=== PATIENT | female | born 1945 | race Caucasian/White ===

== ENCOUNTER 2018-05-23 11:18 | Emergency (ER) | payer MEDICARE, SELFPAY ==
[2018-05-23 11:21] VITALS: BP 186/85; PULSE 60; RESP 14; TEMP 36.4; O2SAT 97; BMI 23.9
[2018-05-23] MEDS: KETOROLAC 60 MG/2 ML VIAL 30 MG IV (11:49)
[2018-05-23] MEDS: SODIUM CHLORIDE 0.9% 1,000 ML 1000 ML IV (11:49)
[2018-05-23 12:01] LABS: INR 2.1 (0.9-1.3); Prothrombin Time 24.5 SECONDS (10.1-12.7)
[2018-05-23 12:04] LABS: PTT Partial Thromboplastin Tim 39 SECONDS (26.4-36.2)
[2018-05-23 12:05] LABS: Alanine Aminotransferase 24 IU/L (9-52); Albumin Globulin Ratio 1.3 (1.0-2.8); Alkaline Phosphatase 76 U/L (38-126); Aspartate Aminotransferase 19 IU/L (14-36); Bilirubin Total 0.4 mg/dL (0.2-1.3); Blood Urea Nitrogen 10 mg/dL (7-17); Calcium 8.9 mg/dL (8.4-10.2); Carbon Dioxide 29 mmol/L (22-32); Chloride 102 mmol/L (98-107); Estimated Glomerular Filt Rate > 60.0 mL/min (>60); Glucose 104 mg/dL (80-110); HEMOLYSIS < 15 (0-50); Lipase 72 U/L (23-300); Potassium 4.1 mmol/L (3.4-5.1); Sodium 139 mmol/L (137-145)
[2018-05-23 12:36] LABS: Add Manual Diff / Slide Review NO; Basophils Percent Auto 0.5 % (0-2); Eosinophils Percent Auto 0.6 % (2-4); Hematocrit 42.5 % (36-46); Hemoglobin 14.5 g/dL (12.0-16.0); Lymphocytes Percent Auto 25.9 % (25-40); Mean Corpuscular Hemoglobin 29.4 PG (26-34); Mean Corpuscular Volume 86.5 fL (80-100); Monocytes Percent Auto 6.5 % (3-14); Neutrophils Absolute Auto 5000 /uL (1500-7000); Neutrophils Percent Auto 66.5 % (50-75); Platelet Count 335 X10^3/uL (150-400); Red Blood Cell Count 4.92 X10^6/uL (4.0-5.2); Red Cell Distribution Width 13.5 % (11.6-14.8); White Blood Cell Count 7.4 X10^3/uL (4.5-11.0)
--- NOTE | 2018-05-23 12:37 | ED.FEMALEGU ---
HPI - Female Genitourinary <DESTINY Ricks - Last Filed: 05/23/18 21:49> General Chief complaint: Urogenital-Female Stated complaint: states blood in urine and abdonimal pain Time Seen by Provider: 05/23/18 12:06 Source: patient Mode of arrival: ambulatory Limitations: no limitations History of Present Illness HPI Narrative: 72-year-old female with history a QT prolongation and is a nonsmoker here for complaint of pain into her left lower quadrant area and also to her left flank over the past couple of days. She was seen in the walk-in clinic and was sent here for further evaluation. She has a history of having kidney stones. It is reported that there was some blood in her urine at the walk-in clinic. She denies any fevers or chills. She did say she had some hematuria over the past couple of days. Pain has reduced over the past few hours. She denies any trauma to the area. Last bowel movement was earlier today and was unremarkable. Positive flatus. She also states she has some mild dysuria. She denies any other current concerns or complaints at this time MD Complaint: dysuria Related Data Home Medications Medication Instructions Recorded Confirmed propranolol ER 120 mg capsule,24 120 mg PO DAILY 12/04/17 05/23/18 hr,extended release warfarin 2 mg tablet See Label Instructions .ROUTE 12/04/17 05/23/18 .COMPLEX tab Previous Rx's Medication Instructions Recorded alendronate [Fosamax] 70 mg PO Q7D@0730 #36 tab 05/21/18 estradiol [Estrace] 1 mg PO Q DAY #90 tab 05/21/18 oxybutynin chloride ER 15 mg 15 mg PO DAILY #30 tab 05/21/18 tablet,extended release 24 hr Allergies Allergy/AdvReac Type Severity Reaction Status Date / Time procaine Allergy Intermediate Unconscious Verified 05/23/18 11:26 ondansetron [ONDANSETRON] Allergy Mild Unconscious Verified 05/23/18 11:26 Review of Systems <DESTINY Ricks - Last Filed: 05/23/18 21:49> Constitutional Denies chills, Denies fever(s), Denies lethargy and Denies weakness Eyes Denies change in vision, Denies eye discharge, Denies irritation and Denies loss of vision ENT Ears, Nose, Mouth, and Throat: Denies change in voice, Denies neck pain and Denies sore throat Cardiovascular Denies chest pain, Denies irregular heart rhythm, Denies lightheadedness, Denies palpitations, Denies dyspnea, Denies dyspnea on exertion and Denies orthopnea Respiratory Denies cough, Denies dyspnea, Denies dyspnea on exertion and Denies wheezing Gastrointestinal Gastrointestinal: Denies abdominal pain, Denies change in bowel habits, Denies diarrhea, Denies nausea and Denies vomiting Genitourinary Comments: Left flank pain and left lower quadrant pain over the past couple of days Musculoskeletal Denies neck pain Neurologic Denies confusion, Denies loss of vision and Denies weakness Psychiatric Denies anxiety, Denies confusion, Denies depression, Denies homicidal ideation and Denies suicidal ideation Endocrine Denies palpitations Hematologic/Lymphatic Denies easy bruising Allergic/Immunologic Denies wheezing Exam <DESTINY Ricks - Last Filed: 05/23/18 21:49> Initial Vital Signs Initial Vital Signs: Vital Signs Temperature 97.6 F 05/23/18 11:21 Pulse Rate 60 05/23/18 11:21 Respiratory Rate 14 05/23/18 11:21 Blood Pressure 186/85 H 05/23/18 11:21 Pulse Oximetry 97 05/23/18 11:21 Const General: cooperative and well developed Nutritional Appearance: well nourished Orientation: alert, awake, oriented x3 and not confused [facility] Mouth: oral mucosae normal and moist mucous membranes Eyes Conjunctivae: conjunctivae normal Sclera: sclerae normal Pupils: PERRL EOM: EOM intact bilaterally Resp Effort & Inspection: normal respiratory effort, able to speak in complete sentences, no respiratory distress and no use of accessory muscles Auscultation: clear to auscultation bilaterally, no rales, no rhonchi and no wheezes Cardio Rate: regular rate Rhythm: regular rhythm Heart Sounds: no click, no gallops, no murmurs and no rubs Pulses: normal peripheral pulses GI Inspection: non-distended Palpation: soft, no hepatosplenomegaly, No guarding, No pulsatile mass and tender (Left lower quadrant) Auscultation: normal bowel sounds General: No CVA tenderness Skin General: no rashes or lesions noted, No jaundice and No petechiae Neuro General: alert, oriented x3, gait normal and no focal motor deficits Speech: speech normal <Teena Pittman DO - Last Filed: 05/26/18 19:18> Initial Vital Signs Initial Vital Signs: Vital Signs Temperature 97.6 F 05/23/18 11:21 Pulse Rate 60 05/23/18 11:21 Respiratory Rate 14 05/23/18 11:21 Blood Pressure 186/85 H 05/23/18 11:21 Pulse Oximetry 97 05/23/18 11:21 Course <DESTINY Ricks - Last Filed: 05/23/18 21:49> Orders Ordered: Discontinued Medications Sodium Chloride (Normal Saline 0.9%) 1,000 mls @ 1,000 mls/hr IV BOLUS ONE Stop: 05/23/18 12:44 Last Infusion: 05/23/18 13:59 Dose: 0 mls/hr Admin: 05/23/18 11:49 Dose: 1,000 mls/hr Ketorolac Tromethamine (Toradol) 30 mg IV NOW ONE Stop: 05/23/18 11:47 Last Admin: 05/23/18 11:49 Dose: 30 mg Vital Signs - 8 hr 05/23/18 14:05 Pulse Rate 65 Blood Pressure [Right Arm] 159/74 H Pulse Oximetry 100 <Teena Pittman DO - Last Filed: 05/26/18 19:18> Orders Ordered: Discontinued Medications Sodium Chloride (Normal Saline 0.9%) 1,000 mls @ 1,000 mls/hr IV BOLUS ONE Stop: 05/23/18 12:44 Last Infusion: 05/23/18 13:59 Dose: 0 mls/hr Admin: 05/23/18 11:49 Dose: 1,000 mls/hr Ketorolac Tromethamine (Toradol) 30 mg IV NOW ONE Stop: 05/23/18 11:47 Last Admin: 05/23/18 11:49 Dose: 30 mg Vital Signs - 8 hr 05/23/18 14:05 Pulse Rate 65 Blood Pressure [Right Arm] 159/74 H Pulse Oximetry 100 MDM - Female Genitourinary <DESTINY Ricks - Last Filed: 05/23/18 21:49> Medical Records Lab Data Result diagrams: 05/23/18 11:41 05/23/18 11:41 Lab Results 01/10/0405/23/18 05/23/18 Range/Units 11:41 11:41 11:41 WBC 7.4 (4.5-11.0) X10^3/uL RBC 4.92 (4.0-5.2) X10^6/uL Hgb 14.5 (12.0-16.0) g/dL Hct 42.5 (36-46) % MCV 86.5 (80-100) fL MCH 29.4 (26-34) PG MCHC 34.0 (30-36) % RDW 13.5 (11.6-14.8) % Plt Count 335 (150-400) X10^3/uL Neut % (Auto) 66.5 (50-75) % Lymph % (Auto) 25.9 (25-40) % [place] % (Auto) 6.5 (3-14) % Eos % (Auto) 0.6 L (2-4) % Baso % (Auto) 0.5 (0-2) % Neut # (Auto) 5000 (7342-3978) /uL PT 24.5 H (10.1-12.7) SECONDS INR 2.1 H (0.9-1.3) APTT 39 H (26.4-36.2) SECONDS Sodium 139 (137-145) mmol/L Potassium 4.1 (3.4-5.1) mmol/L Chloride 102 (98-107) mmol/L Carbon Dioxide 29 (22-32) mmol/L BUN 10 (7-17) mg/dL Creatinine 0.50 L (0.52-1.04) mg/dL Estimated GFR > 60.0 (>60) mL/min BUN/Creatinine Ratio 20.0 (6-22) Glucose 104 (80-110) mg/dL Calcium 8.9 (8.4-10.2) mg/dL Total Bilirubin 0.4 (0.2-1.3) mg/dL AST 19 (14-36) IU/L ALT 24 (9-52) IU/L Alkaline Phosphatase 76 (38-126) U/L Total Protein 7.0 (6.3-8.2) g/dL Albumin 4.0 (3.5-5.0) g/dL Globulin 3.0 (1.7-4.1) g/dL Albumin/Globulin Ratio 1.3 (1.0-2.8) Lipase 72 (23-300) U/L Urine Dip Bedside Urine Glucose Negative Bedside Urine Bilirubin - Negative Bedside Urine Ketone - Negative Urine Specific [place] 1.010 Bedside Urine Occult Blood - Negative Bedside Urine pH 8.0 Bedside Urine Protein - Negative Bedside Urine Urobilinogen - Negative Bedside Urine Nitrite - Negative Bedside Urine Leukocytes - Negative Esterase Imaging Data CT scan - abdomen: Radiologist's impression: CT scan of pelvis and abdomen was obtained and shows questionable radiopaqueness to the left ureteropelvic junction that may represent sludge or sub mm stones partially obstructing the collecting system. There is nonobstructive left nephrolithiasis. No hydroureter. Right kidneys were unremarkable. Other findings to the abdomen were unremarkable. CBC and Chem panel were obtained and were negative. Lipase was normal. Urinalysis was negative for urinary tract infection. Differential between abdominal wall pain or a stone that may have passed over the past couple of days. She is encouraged to follow up with her primary care provider in the next few days for re-evaluation. For any worsening symptoms return emergency. [id number] ibuprofen as needed for any discomfort. ECG Data Interpretation: [place] [address] CT Scan Report Signed Patient: Graciela Rodriguez MR#: [id number] : 1945 Acct:[id number] Age/Sex: 72 / F Date of Service: 05/23/18 Loc: ED Accession Number: [id number] Procedure: CT abdomen pelvis w con Ordering Provider: Wilmar Dale PROCEDURE: CT ABDOMEN PELVIS W CON INDICATIONS: Pain to left flank and left lower quadrant area TECHNIQUE: After the administration of intravenous contrast, 5 mm thick sections acquired from the diaphragm to the symphysis. 5 mm coronal and sagittal reformats were acquired. For radiation dose reduction, the following was used: automated exposure control, adjustment of mA and/or kV according to patient size. COMPARISON: [facility], CT, ABDOMEN/PELVIS WITH CONTRAST, 03/17/2008, 8:25. [facility], CT, KIDNEY/ URETER/BLADDER, 06/24/2008, 13:04. [facility], CT, KIDNEY/ URETER/BLADDER, 04/05/2012, 16:55. FINDINGS: Image quality: Excellent. ABDOMEN: Lung bases: There is mild atelectasis at the left lung base. No pleural effusion. Heart size is normal. Solid organs: Liver is normal in size and enhancement. Gallbladder is unremarkable. Biliary system is non dilated. Pancreas enhances normally. Spleen is normal in size and enhancement. A cystic lesion is present within the posterior aspect of the spleen this was likely present on the study dated 03/17/08 and may represent a small splenic cyst.. No adrenal nodules. Kidneys demonstrate normal size and enhancement. No right hydronephrosis. There is trace left hydronephrosis and a questionable radiopacity at the UPJ ureteropelvic junction (series 4, image 32 and series 2, image 29). The downstream ureter is decompressed. No ureteral calculi. A nonobstructing 3 mm diameter calculus is present in the lower pole of the left kidney. Peritoneum and bowel: Bowel loops demonstrate normal wall thickness and caliber. The appendix is not visualized; however surgical clips are present in the region of the cecum in the lower quadrant suggesting prior appendectomy. No free fluid or air. Nodes and vessels: No retroperitoneal or mesenteric adenopathy by size criteria. Aorta and inferior vena cava are normal in size. Miscellaneous: No ventral hernias. PELVIS: Genitourinary: Bladder wall thickness is normal. Miscellaneous: No inguinal hernias or adenopathy. Bones: No suspicious bony lesions. No vertebral body compression fractures. IMPRESSION: 1. Mild dilatation of the left renal collecting system to the level of the ureteropelvic junction. Questionable radiopacity at the UPJ which may represent sludge or submillimeter stones partially obstructing the collecting system. 2. Nonobstructive left nephrolithiasis. No right-sided hydronephrosis, hydroureter, or ureterolithiasis. No bladder calculi. 3. No other acute intra-abdominal findings. Patient is likely status post appendectomy. Dictated by: Blossom Faust M.D. on 05/23/2018 at 13:26 Approved by: Blossom Faust M.D. on 05/23/2018 at 13:33 <Teena Pittman DO - Last Filed: 05/26/18 19:18> Lab Data Lab Results 05/23/18 05/23/18 05/23/18 Range/Units 11:41 11:41 11:41 WBC 7.4 (4.5-11.0) X10^3/uL RBC 4.92 (4.0-5.2) X10^6/uL Hgb 14.5 (12.0-16.0) g/dL Hct 42.5 (36-46) % MCV 86.5 (80-100) fL MCH 29.4 (26-34) PG MCHC 34.0 (30-36) % RDW 13.5 (11.6-14.8) % Plt Count 335 (150-400) X10^3/uL Neut % (Auto) 66.5 (50-75) % Lymph % (Auto) 25.9 (25-40) % [place] % (Auto) 6.5 (3-14) % Eos % (Auto) 0.6 L (2-4) % Baso % (Auto) 0.5 (0-2) % Neut # (Auto) 5000 (0382-9413) /uL PT 24.5 H (10.1-12.7) SECONDS INR 2.1 H (0.9-1.3) APTT 39 H (26.4-36.2) SECONDS Sodium 139 (137-145) mmol/L Potassium 4.1 (3.4-5.1) mmol/L Chloride 102 (98-107) mmol/L Carbon Dioxide 29 (22-32) mmol/L BUN 10 (7-17) mg/dL Creatinine 0.50 L (0.52-1.04) mg/dL Estimated GFR > 60.0 (>60) mL/min BUN/Creatinine Ratio 20.0 (6-22) Glucose 104 (80-110) mg/dL Calcium 8.9 (8.4-10.2) mg/dL Total Bilirubin 0.4 (0.2-1.3) mg/dL AST 19 (14-36) IU/L ALT 24 (9-52) IU/L Alkaline Phosphatase 76 (38-126) U/L Total Protein 7.0 (6.3-8.2) g/dL Albumin 4.0 (3.5-5.0) g/dL Globulin 3.0 (1.7-4.1) g/dL Albumin/Globulin Ratio 1.3 (1.0-2.8) Lipase 72 (23-300) U/L Urine Dip Bedside Urine Glucose Negative Bedside Urine Bilirubin - Negative Bedside Urine Ketone - Negative Urine Specific [place] 1.010 Bedside Urine Occult Blood - Negative Bedside Urine pH 8.0 Bedside Urine Protein - Negative Bedside Urine Urobilinogen - Negative Bedside Urine Nitrite - Negative Bedside Urine Leukocytes - Negative Esterase Discharge Plan Departure Patient Disposition: Home Clinical Impression: Abdominal pain Discharge Date/Time: 05/23/18 15:17 Interventions: ED Discharge Assessment Last Done: 05/23/18 15:17 Instructions: Acute Abdominal Pain Activity Restrictions/Additional Instructions: Laboratory results today were unremarkable. Urinalysis was negative for urinary tract infection. CT showed mild swelling to her left kidney but no stone was appreciated. There was an area at the junction of the kidney and the ureter where there may be some sludge. It is possible that you may have already passed the stone that was causing the discomfort in your flank area. Differential for pain into the abdomen area may be a abdominal muscle pain. Plenty of fluids. Follow up with her primary care for the next few days for re-evaluation. [id number] ibuprofen as needed for any discomfort. For any worsening symptoms return to the emergency room. Prescriptions: No Action propranolol 120 mg capsule,extended release 24 hr 120 mg PO DAILY RF: 0 warfarin 2 mg tablet See Label Instructions .ROUTE .COMPLEX RF: 0 estradiol [Estrace] 1 mg tablet 1 mg PO Q DAY Qty: 90 RF: 3 oxybutynin chloride 15 mg tablet extended release 24hr 15 mg PO DAILY Qty: 30 RF: 0 alendronate [Fosamax] 70 mg tablet 70 mg PO Q7D@0730 Qty: 36 RF: 3 Referrals: Bradley Trivedi MD [Primary Care Provider] - <Teena Pittman DO - Last Filed: 05/26/18 19:18> Cosign ED Attending Cosignature Attestation: I was immediately available in the department for consultation. This documentation has been reviewed. Supervised by Teena Pittman DO
--- NOTE | 2018-05-23 12:46 | DI.CT.S_ITS ---
PROCEDURE: CT ABDOMEN PELVIS W CON INDICATIONS: Pain to left flank and left lower quadrant area TECHNIQUE: After the administration of intravenous contrast, 5 mm thick sections acquired from the diaphragm to the symphysis. 5 mm coronal and sagittal reformats were acquired. For radiation dose reduction, the following was used: automated exposure control, adjustment of mA and/or kV according to patient size. COMPARISON: [facility], CT, ABDOMEN/PELVIS WITH CONTRAST, 03/17/2008, 8:25. [facility], CT, KIDNEY/ URETER/BLADDER, 06/24/2008, 13:04. [facility], CT, KIDNEY/ URETER/BLADDER, 04/05/2012, 16:55. FINDINGS: Image quality: Excellent. ABDOMEN: Lung bases: There is mild atelectasis at the left lung base. No pleural effusion. Heart size is normal. Solid organs: Liver is normal in size and enhancement. Gallbladder is unremarkable. Biliary system is non dilated. Pancreas enhances normally. Spleen is normal in size and enhancement. A cystic lesion is present within the posterior aspect of the spleen this was likely present on the study dated 03/17/08 and may represent a small splenic cyst.. No adrenal nodules. Kidneys demonstrate normal size and enhancement. No right hydronephrosis. There is trace left hydronephrosis and a questionable radiopacity at the UPJ ureteropelvic junction (series 4, image 32 and series 2, image 29). The downstream ureter is decompressed. No ureteral calculi. A nonobstructing 3 mm diameter calculus is present in the lower pole of the left kidney. Peritoneum and bowel: Bowel loops demonstrate normal wall thickness and caliber. The appendix is not visualized; however surgical clips are present in the region of the cecum in the lower quadrant suggesting prior appendectomy. No free fluid or air. Nodes and vessels: No retroperitoneal or mesenteric adenopathy by size criteria. Aorta and inferior vena cava are normal in size. Miscellaneous: No ventral hernias. PELVIS: Genitourinary: Bladder wall thickness is normal. Miscellaneous: No inguinal hernias or adenopathy. Bones: No suspicious bony lesions. No vertebral body compression fractures. IMPRESSION: 1. Mild dilatation of the left renal collecting system to the level of the ureteropelvic junction. Questionable radiopacity at the UPJ which may represent sludge or submillimeter stones partially obstructing the collecting system. 2. Nonobstructive left nephrolithiasis. No right-sided hydronephrosis, hydroureter, or ureterolithiasis. No bladder calculi. 3. No other acute intra-abdominal findings. Patient is likely status post appendectomy. Dictated by: Blossom Faust M.D. on 05/23/2018 at 13:26 Approved by: Blossom Faust M.D. on 05/23/2018 at 13:33
--- NOTE | 2018-05-23 13:54 | ED_ITS ---
HPI - Female Genitourinary <DESTINY Ricks - Last Filed: 05/23/18 21:49> General Chief complaint: Urogenital-Female Stated complaint: states blood in urine and abdonimal pain Time Seen by Provider: 05/23/18 12:06 Source: patient Mode of arrival: ambulatory Limitations: no limitations History of Present Illness HPI Narrative: 72-year-old female with history a QT prolongation and is a nonsmoker here for complaint of pain into her left lower quadrant area and also to her left flank over the past couple of days. She was seen in the walk-in clinic and was sent here for further evaluation. She has a history of having kidney stones. It is reported that there was some blood in her urine at the walk-in clinic. She denies any fevers or chills. She did say she had some hematuria over the past couple of days. Pain has reduced over the past few hours. She denies any trauma to the area. Last bowel movement was earlier today and was unremarkable. Positive flatus. She also states she has some mild dysuria. She denies any other current concerns or complaints at this time MD Complaint: dysuria Related Data Home Medications Medication Instructions Recorded Confirmed propranolol ER 120 mg capsule,24 120 mg PO DAILY 12/04/17 05/23/18 hr,extended release warfarin 2 mg tablet See Label Instructions .ROUTE 12/04/17 05/23/18 .COMPLEX tab Previous Rx's Medication Instructions Recorded alendronate [Fosamax] 70 mg PO Q7D@0730 #36 tab 05/21/18 estradiol [Estrace] 1 mg PO Q DAY #90 tab 05/21/18 oxybutynin chloride ER 15 mg 15 mg PO DAILY #30 tab 05/21/18 tablet,extended release 24 hr Allergies Allergy/AdvReac Type Severity Reaction Status Date / Time procaine Allergy Intermediate Unconscious Verified 05/23/18 11:26 ondansetron [ONDANSETRON] Allergy Mild Unconscious Verified 05/23/18 11:26 Review of Systems <DESTINY Ricks - Last Filed: 05/23/18 21:49> Constitutional Denies chills, Denies fever(s), Denies lethargy and Denies weakness Eyes Denies change in vision, Denies eye discharge, Denies irritation and Denies loss of vision ENT Ears, Nose, Mouth, and Throat: Denies change in voice, Denies neck pain and Denies sore throat Cardiovascular Denies chest pain, Denies irregular heart rhythm, Denies lightheadedness, Denies palpitations, Denies dyspnea, Denies dyspnea on exertion and Denies orthopnea Respiratory Denies cough, Denies dyspnea, Denies dyspnea on exertion and Denies wheezing Gastrointestinal Gastrointestinal: Denies abdominal pain, Denies change in bowel habits, Denies diarrhea, Denies nausea and Denies vomiting Genitourinary Comments: Left flank pain and left lower quadrant pain over the past couple of days Musculoskeletal Denies neck pain Neurologic Denies confusion, Denies loss of vision and Denies weakness Psychiatric Denies anxiety, Denies confusion, Denies depression, Denies homicidal ideation and Denies suicidal ideation Endocrine Denies palpitations Hematologic/Lymphatic Denies easy bruising Allergic/Immunologic Denies wheezing Exam <DESTINY Ricks - Last Filed: 05/23/18 21:49> Initial Vital Signs Initial Vital Signs: Vital Signs Temperature 97.6 F 05/23/18 11:21 Pulse Rate 60 05/23/18 11:21 Respiratory Rate 14 05/23/18 11:21 Blood Pressure 186/85 H 05/23/18 11:21 Pulse Oximetry 97 05/23/18 11:21 Const General: cooperative and well developed Nutritional Appearance: well nourished Orientation: alert, awake, oriented x3 and not confused [facility] Mouth: oral mucosae normal and moist mucous membranes Eyes Conjunctivae: conjunctivae normal Sclera: sclerae normal Pupils: PERRL EOM: EOM intact bilaterally Resp Effort & Inspection: normal respiratory effort, able to speak in complete sentences, no respiratory distress and no use of accessory muscles Auscultation: clear to auscultation bilaterally, no rales, no rhonchi and no wheezes Cardio Rate: regular rate Rhythm: regular rhythm Heart Sounds: no click, no gallops, no murmurs and no rubs Pulses: normal peripheral pulses GI Inspection: non-distended Palpation: soft, no hepatosplenomegaly, No guarding, No pulsatile mass and tender (Left lower quadrant) Auscultation: normal bowel sounds General: No CVA tenderness Skin General: no rashes or lesions noted, No jaundice and No petechiae Neuro General: alert, oriented x3, gait normal and no focal motor deficits Speech: speech normal <Teena Pittman DO - Last Filed: 05/26/18 19:18> Initial Vital Signs Initial Vital Signs: Vital Signs Temperature 97.6 F 05/23/18 11:21 Pulse Rate 60 05/23/18 11:21 Respiratory Rate 14 05/23/18 11:21 Blood Pressure 186/85 H 05/23/18 11:21 Pulse Oximetry 97 05/23/18 11:21 Course <DESTINY Ricks - Last Filed: 05/23/18 21:49> Orders Ordered: Discontinued Medications Sodium Chloride (Normal Saline 0.9%) 1,000 mls @ 1,000 mls/hr IV BOLUS ONE Stop: 05/23/18 12:44 Last Infusion: 05/23/18 13:59 Dose: 0 mls/hr Admin: 05/23/18 11:49 Dose: 1,000 mls/hr Ketorolac Tromethamine (Toradol) 30 mg IV NOW ONE Stop: 05/23/18 11:47 Last Admin: 05/23/18 11:49 Dose: 30 mg Vital Signs - 8 hr 05/23/18 14:05 Pulse Rate 65 Blood Pressure [Right Arm] 159/74 H Pulse Oximetry 100 <Teena Pittman DO - Last Filed: 05/26/18 19:18> Orders Ordered: Discontinued Medications Sodium Chloride (Normal Saline 0.9%) 1,000 mls @ 1,000 mls/hr IV BOLUS ONE Stop: 05/23/18 12:44 Last Infusion: 05/23/18 13:59 Dose: 0 mls/hr Admin: 05/23/18 11:49 Dose: 1,000 mls/hr Ketorolac Tromethamine (Toradol) 30 mg IV NOW ONE Stop: 05/23/18 11:47 Last Admin: 05/23/18 11:49 Dose: 30 mg Vital Signs - 8 hr 05/23/18 14:05 Pulse Rate 65 Blood Pressure [Right Arm] 159/74 H Pulse Oximetry 100 MDM - Female Genitourinary <DESTINY Ricks - Last Filed: 05/23/18 21:49> Medical Records Lab Data Result diagrams: 05/23/18 11:41 05/23/18 11:41 Lab Results 01/10/0405/23/18 05/23/18 Range/Units 11:41 11:41 11:41 WBC 7.4 (4.5-11.0) X10^3/uL RBC 4.92 (4.0-5.2) X10^6/uL Hgb 14.5 (12.0-16.0) g/dL Hct 42.5 (36-46) % MCV 86.5 (80-100) fL MCH 29.4 (26-34) PG MCHC 34.0 (30-36) % RDW 13.5 (11.6-14.8) % Plt Count 335 (150-400) X10^3/uL Neut % (Auto) 66.5 (50-75) % Lymph % (Auto) 25.9 (25-40) % Graham % (Auto) 6.5 (3-14) % Eos % (Auto) 0.6 L (2-4) % Baso % (Auto) 0.5 (0-2) % Neut # (Auto) 5000 (7505-2115) /uL PT 24.5 H (10.1-12.7) SECONDS INR 2.1 H (0.9-1.3) APTT 39 H (26.4-36.2) SECONDS Sodium 139 (137-145) mmol/L Potassium 4.1 (3.4-5.1) mmol/L Chloride 102 (98-107) mmol/L Carbon Dioxide 29 (22-32) mmol/L BUN 10 (7-17) mg/dL Creatinine 0.50 L (0.52-1.04) mg/dL Estimated GFR > 60.0 (>60) mL/min BUN/Creatinine Ratio 20.0 (6-22) Glucose 104 (80-110) mg/dL Calcium 8.9 (8.4-10.2) mg/dL Total Bilirubin 0.4 (0.2-1.3) mg/dL AST 19 (14-36) IU/L ALT 24 (9-52) IU/L Alkaline Phosphatase 76 (38-126) U/L Total Protein 7.0 (6.3-8.2) g/dL Albumin 4.0 (3.5-5.0) g/dL Globulin 3.0 (1.7-4.1) g/dL Albumin/Globulin Ratio 1.3 (1.0-2.8) Lipase 72 (23-300) U/L Urine Dip Bedside Urine Glucose Negative Bedside Urine Bilirubin - Negative Bedside Urine Ketone - Negative Urine Specific [place] 1.010 Bedside Urine Occult Blood - Negative Bedside Urine pH 8.0 Bedside Urine Protein - Negative Bedside Urine Urobilinogen - Negative Bedside Urine Nitrite - Negative Bedside Urine Leukocytes - Negative Esterase Imaging Data CT scan - abdomen: Radiologist's impression: CT scan of pelvis and abdomen was obtained and shows questionable radiopaqueness to the left ureteropelvic junction that may represent sludge or sub mm stones partially obstructing the collecting system. There is nonobstructive left nephrolithiasis. No hydroureter. Right kidneys were unremarkable. Other findings to the abdomen were unremarkable. CBC and Chem panel were obtained and were negative. Lipase was normal. Urinalysis was negative for urinary tract infection. Differential between abdominal wall pain or a stone that may have passed over the past couple of days. She is encouraged to follow up with her primary care provider in the next few days for re-evaluation. For any worsening symptoms return emergency. [id number] ibuprofen as needed for any discomfort. ECG Data Interpretation: [place] [address] CT Scan Report Signed Patient: Graciela Rodriguez MR#: [id number] : 1945 Acct:[id number] Age/Sex: 72 / F Date of Service: 05/23/18 Loc: ED Accession Number: [id number] Procedure: CT abdomen pelvis w con Ordering Provider: Wilmar Dale PROCEDURE: CT ABDOMEN PELVIS W CON INDICATIONS: Pain to left flank and left lower quadrant area TECHNIQUE: After the administration of intravenous contrast, 5 mm thick sections acquired from the diaphragm to the symphysis. 5 mm coronal and sagittal reformats were acquired. For radiation dose reduction, the following was used: automated exposure control, adjustment of mA and/or kV according to patient size. COMPARISON: [facility], CT, ABDOMEN/PELVIS WITH CONTRAST, 03/17/2008, 8: 25. [facility], CT, KIDNEY/ URETER/BLADDER, 06/24/2008, 13:04. [facility], CT, KIDNEY/ URETER/BLADDER, 04/05/2012, 16:55. FINDINGS: Image quality: Excellent. ABDOMEN: Lung bases: There is mild atelectasis at the left lung base. No pleural effusion. Heart size is normal. Solid organs: Liver is normal in size and enhancement. Gallbladder is unremarkable. Biliary system is non dilated. Pancreas enhances normally. Spleen is normal in size and enhancement. A cystic lesion is present within the posterior aspect of the spleen this was likely present on the study dated 03/17/08 and may represent a small splenic cyst.. No adrenal nodules. Kidneys demonstrate normal size and enhancement. No right hydronephrosis. There is trace left hydronephrosis and a questionable radiopacity at the UPJ ureteropelvic junction (series 4, image 32 and series 2, image 29). The downstream ureter is decompressed. No ureteral calculi. A nonobstructing 3 mm diameter calculus is present in the lower pole of the left kidney. Peritoneum and bowel: Bowel loops demonstrate normal wall thickness and caliber. The appendix is not visualized; however surgical clips are present in the region of the cecum in the lower quadrant suggesting prior appendectomy. No free fluid or air. Nodes and vessels: No retroperitoneal or mesenteric adenopathy by size criteria. Aorta and inferior vena cava are normal in size. Miscellaneous: No ventral hernias. PELVIS: Genitourinary: Bladder wall thickness is normal. Miscellaneous: No inguinal hernias or adenopathy. Bones: No suspicious bony lesions. No vertebral body compression fractures. IMPRESSION: 1. Mild dilatation of the left renal collecting system to the level of the ureteropelvic junction. Questionable radiopacity at the UPJ which may represent sludge or submillimeter stones partially obstructing the collecting system. 2. Nonobstructive left nephrolithiasis. No right-sided hydronephrosis, hydroureter, or ureterolithiasis. No bladder calculi. 3. No other acute intra-abdominal findings. Patient is likely status post appendectomy. Dictated by: Blossom Faust M.D. on 05/23/2018 at 13:26 Approved by: Blossom Faust M.D. on 05/23/2018 at 13:33 <Teena Pittman DO - Last Filed: 05/26/18 19:18> Lab Data Lab Results 05/23/18 05/23/18 05/23/18 Range/Units 11:41 11:41 11:41 WBC 7.4 (4.5-11.0) X10^3/uL RBC 4.92 (4.0-5.2) X10^6/uL Hgb 14.5 (12.0-16.0) g/dL Hct 42.5 (36-46) % MCV 86.5 (80-100) fL MCH 29.4 (26-34) PG MCHC 34.0 (30-36) % RDW 13.5 (11.6-14.8) % Plt Count 335 (150-400) X10^3/uL Neut % (Auto) 66.5 (50-75) % Lymph % (Auto) 25.9 (25-40) % Graham % (Auto) 6.5 (3-14) % Eos % (Auto) 0.6 L (2-4) % Baso % (Auto) 0.5 (0-2) % Neut # (Auto) 5000 (2233-2699) /uL PT 24.5 H (10.1-12.7) SECONDS INR 2.1 H (0.9-1.3) APTT 39 H (26.4-36.2) SECONDS Sodium 139 (137-145) mmol/L Potassium 4.1 (3.4-5.1) mmol/L Chloride 102 (98-107) mmol/L Carbon Dioxide 29 (22-32) mmol/L BUN 10 (7-17) mg/dL Creatinine 0.50 L (0.52-1.04) mg/dL Estimated GFR > 60.0 (>60) mL/min BUN/Creatinine Ratio 20.0 (6-22) Glucose 104 (80-110) mg/dL Calcium 8.9 (8.4-10.2) mg/dL Total Bilirubin 0.4 (0.2-1.3) mg/dL AST 19 (14-36) IU/L ALT 24 (9-52) IU/L Alkaline Phosphatase 76 (38-126) U/L Total Protein 7.0 (6.3-8.2) g/dL Albumin 4.0 (3.5-5.0) g/dL Globulin 3.0 (1.7-4.1) g/dL Albumin/Globulin Ratio 1.3 (1.0-2.8) Lipase 72 (23-300) U/L Urine Dip Bedside Urine Glucose Negative Bedside Urine Bilirubin - Negative Bedside Urine Ketone - Negative Urine Specific [place] 1.010 Bedside Urine Occult Blood - Negative Bedside Urine pH 8.0 Bedside Urine Protein - Negative Bedside Urine Urobilinogen - Negative Bedside Urine Nitrite - Negative Bedside Urine Leukocytes - Negative Esterase Discharge Plan Departure Patient Disposition: Home Clinical Impression: Abdominal pain Discharge Date/Time: 05/23/18 15:17 Interventions: ED Discharge Assessment Last Done: 05/23/18 15:17 Instructions: Acute Abdominal Pain Activity Restrictions/Additional Instructions: Laboratory results today were unremarkable. Urinalysis was negative for urinary tract infection. CT showed mild swelling to her left kidney but no stone was appreciated. There was an area at the junction of the kidney and the ureter where there may be some sludge. It is possible that you may have already passed the stone that was causing the discomfort in your flank area. Differential for pain into the abdomen area may be a abdominal muscle pain. Plenty of fluids. Follow up with her primary care for the next few days for re- evaluation. [id number] ibuprofen as needed for any discomfort. For any worsening symptoms return to the emergency room. Prescriptions: No Action propranolol 120 mg capsule,extended release 24 hr 120 mg PO DAILY RF: 0 warfarin 2 mg tablet See Label Instructions .ROUTE .COMPLEX RF: 0 estradiol [Estrace] 1 mg tablet 1 mg PO Q DAY Qty: 90 RF: 3 oxybutynin chloride 15 mg tablet extended release 24hr 15 mg PO DAILY Qty: 30 RF: 0 alendronate [Fosamax] 70 mg tablet 70 mg PO Q7D@0730 Qty: 36 RF: 3 Referrals: Bradley Trivedi MD [Primary Care Provider] - <Teena Pittman DO - Last Filed: 05/26/18 19:18> Cosign ED Attending Cosignature Attestation: I was immediately available in the department for consultation. This documentation has been reviewed. Supervised by Teena Pittman DO
[2018-05-23 14:05] VITALS: BP 159/74; PULSE 65; O2SAT 100
== END 2018-05-23 15:17 | disposition home or self-care (01) ==
PROVIDERS: Emergency Medicine; Emergency Provider Nurse Practitioner Family; Family Provider Internal Medicine; PCP Internal Medicine
DX: R10.9 Unspecified abdominal pain (principal)
CPT/HCPCS: 36591; 74177; 80053; 81003; 83690; 85025; 85610; 85730; 96361; 96374; 99283; 99285; J1885; Q9967

== ENCOUNTER 2019-12-27 03:43 | Emergency (ER) | payer MEDICARE, SELFPAY ==
[2019-12-27] VITALS (21 sets, daily range): BP systolic 163–203; BP diastolic 72–97; PULSE 60; RESP 16–28; TEMP 37.1; O2SAT 94–99; BMI 21.7
--- NOTE | 2019-12-27 04:07 | DI.RAD.S_ITS ---
PROCEDURE: XR CHEST 1V INDICATIONS: SOB TECHNIQUE: One view of the chest was acquired. COMPARISON: [facility], CHEST 2 VIEW, 10/05/2008, 12:04. FINDINGS: Surgical changes and devices: Left chest wall dual lead cardiac pacer.. Lungs and pleura: Lungs are clear. No pleural effusions or pneumothorax. Mediastinum: Mediastinal contours appear normal. Heart size is normal. Bones and chest wall: No suspicious bony lesions. Overlying soft tissues appear unremarkable. IMPRESSION: No acute cardiopulmonary disease process. Dictated by: Stacey Meraz MD, PhD on 12/27/2019 at 8:56 Approved by: Stacey Meraz MD, PhD on 12/27/2019 at 9:00
[2019-12-27] MEDS: FAMOTIDINE 20 MG/50 ML PIGGYBACK 200 MG IV (04:15)
[2019-12-27] MEDS: diphenhydrAMINE 50 MG/ML VIAL 25 MG IV (04:15)
--- NOTE | 2019-12-27 04:15 | ED_ITS ---
HPI - Allergic Reaction General Chief complaint: Allergic Reaction Stated complaint: BEE STING LEFT HAND, DIZZINESS Time Seen by Provider: 12/27/19 03:45 Source: patient Mode of arrival: Ambulatory Limitations: no limitations History of Present Illness HPI narrative: 74-year-old female nonsmoker with history of prolonged QT interval and subsequent pacemaker presents with a family friend in the chief complaint of left hand and arm pain as well as difficulty breathing and some nonspecific facial rash after a bee sting on her left hand on Friday. She was working in her garden when she was stung on the dorsum of her left hand and felt immediate pain. She proceeded to the walk-in clinic after she developed si gnificant swelling of her left upper extremity. She was encouraged to take antihistamines, placed on a prescription of prednisone as well as Keflex. She presents tonight because she woke up feeling pain in her left hand and some difficulty breathing and noticed some blotching of her face. She denies any headache or blurred vision. She denies any chest pain or abdominal pain. She has had no diarrhea, dysuria or frequency MD complaint: allergic reaction Onset (ago): hour(s) Exposure: insect bite Symptoms: rash and difficulty breathing Severity: mild Treatment prior to arrival: steroids Previous Allergic Reaction History: none Related Data Home Medications Medication Instructions Recorded Confirmed propranolol 120 mg capsule,24 120 mg PO DAILY 12/04/17 12/25/19 hr,extended release warfarin 2 mg tablet See Rx Instructions .ROUTE 12/04/17 12/25/19 .COMPLEX tab Previous Rx's Medication Instructions Recorded triamcinolone acetonide 0.1 % 1 applictn TOP BID #30 gram 10/19/18 topical cream oxybutynin chloride 15 mg See Rx Instructions .ROUTE 03/08/19 tablet,extended release 24 hr .COMPLEX #90 tablet alendronate 70 mg tablet See Rx Instructions .ROUTE 08/11/19 .COMPLEX #12 tablet estradiol 1 mg tablet 1 mg PO Q DAY #90 tab 12/17/19 cephalexin 500 mg capsule 500 mg PO QID 7 Days #28 cap 12/25/19 prednisone 20 mg tablet 20 mg PO DAILY #5 tab 12/25/19 promethazine 12.5 mg tablet 12.5 mg PO Q6H #10 tab 12/25/19 epinephrine [EpiPen 2-Cayetano] 0.3 mg IM Q5-15M PRN #2 each 12/27/19 Allergies Allergy/AdvReac Type Severity Reaction Status Date / Time procaine Allergy Intermediate Unconscious Verified 12/27/19 03:56 ondansetron [ONDANSETRON] Allergy Mild Unconscious Verified 12/27/19 03:56 Review of Systems Constitutional Constitutional: Denies chills, Denies fatigue, Denies fever(s), Denies frequent falls, Denies lethargy and Denies weakness Eyes Eyes: Denies change in vision, Denies eye discharge, Denies irritation and Denies loss of vision ENT Ears, Nose, Mouth, and Throat: Denies change in voice, Denies dizziness, Denies neck pain, Denies sore throat and Denies throat swelling Cardiovascular Cardiovascular: Denies chest pain, Denies irregular heart rhythm, Denies lightheadedness, Denies palpitations, Reports dyspnea, Denies dyspnea on exertion and Denies orthopnea Respiratory Respiratory: Denies cough, Reports dyspnea, Denies dyspnea on exertion and Denies wheezing Gastrointestinal Gastrointestinal: Denies abdominal pain, Denies change in bowel habits, Denies diarrhea, Denies nausea and Denies vomiting Musculoskeletal Musculoskeletal: Denies neck pain and Denies numbness Integumentary/Breasts Skin/Breast: Denies pruritus, Reports erythema, Denies rash, Reports skin swelling and Denies wounds Neurologic Neurologic: Denies behavioral changes, Denies confusion, Denies dizziness, Denies frequent falls, Denies loss of vision, Denies numbness and Denies weakness Psychiatric Psychiatric: Denies anxiety, Denies behavioral changes, Denies confusion, Denies depression, Denies homicidal ideation and Denies suicidal ideation Endocrine Endocrine: Denies fatigue, Denies flushing and Denies palpitations Hematologic/Lymphatic Hematologic/Lymphatic: Denies easy bruising Allergic/Immunologic Allergic/Immunologic: Denies urticaria, Denies throat swelling and Denies wheez ing Patient History Medical History Atrial fibrillation by electrocardiogram (Acute) Bee sting (Acute) Menopause (Chronic) Prolonged QT interval (03/15/13) Surgical History Implantable cardioverter-defibrillator (ICD) in situ Status post appendectomy Status post breast biopsy Status post hysterectomy with oophorectomy Status post tonsillectomy and adenoidectomy Social History Smoking Status: Never smoker Smoking Status: Never smoker alcohol intake frequency: 0-2 drinks per day Substance Use Type: does not use Exam Narrative Exam Narrative: GENERAL: [74] year old patient appears stated age. Well-nourished, well-developed patient, in mild distress. Anxious HEAD: Atraumatic. Normocephalic. EYES: Pupils equal round and reactive. Extraocular motions intact. No scleral icterus. No injection or drainage. ENT: No facial swelling, tongue swelling, lip swelling Nose without bleeding, purulent drainage. Throat without erythema, tonsillar hypertrophy or exudate. Airway patent. NECK: Trachea midline. Non tender CARDIOVASCULAR: Regular rate and rhythm without murmurs, gallops, or rubs. RESPIRATORY: Clear to auscultation. Breath sounds equal bilaterally. No wheezes, rales, or rhonchi. GASTROINTESTINAL: Abdomen soft, non-tender, nondistended. EXTREMITIES: No edema or joint tenderness. BACK: Nontender without deformity or crepitance. No flank tenderness. NEURO: AOx3. SKIN: No rash or erythema of visible areas Initial Vital Signs Initial Vital Signs: Vital Signs Pulse Rate 60 12/27/19 03:46 Pulse Oximetry 99 12/27/19 03:46 Course Orders Ordered: ED Orders 12/27/19 04:00 Basic Metabolic Panel Stat Complete Blood Count AUTO DIFF Stat NT-proBNP (BNP-Adult 18+) Stat Troponin & CK Cardiac Panel Stat 12/27/19 04:07 XR chest 1V Stat EKG-12 Lead Stat Discontinued Medications Diphenhydramine HCl (Benadryl) 25 mg IV NOW ONE Stop: 12/27/19 04:07 Last Admin: 12/27/19 04:15 Dose: 25 mg Documented by: TERRY Famotidine (Pepcid) 20 mg in 50 mls @ 200 mls/hr IV NOW ONE Stop: 12/27/19 04:21 Last Admin: 12/27/19 04:15 Dose: 200 mls/hr Documented by: TERRY Reevaluation(s) Reevaluation #1: labs reviewed and no significant abnormalities. BP down to the 180s Vital Signs Vital signs: Vital Signs - 8 hr 12/27/19 03:46 12/27/19 03:47 12/27/19 03:50 Temperature 98.8 F Pulse Rate 60 60 60 Respiratory Rate 22 Blood Pressure 203/97 H Pulse Oximetry 99 99 99 12/27/19 03:55 12/27/19 04:00 Temperature Pulse Rate 60 60 Respiratory Rate Blood Pressure Pulse Oximetry 99 99 MDM - Allergic Reaction Lab Data Result diagrams: 12/27/19 04:00 12/27/19 04:00 Labs: Lab Results 12/27/19 12/27/19 12/27/19 Range/Units 04:00 04:00 04:00 WBC 13.1 H (4.5-11.0) X10^3/uL RBC 4.51 (4.0-5.2) X10^6/uL Hgb 12.8 (12.0-16.0) g/dL Hct 38.9 (36-46) % MCV 86.2 (80-100) fL MCH 28.5 (26-34) PG MCHC 33.0 (30-36) % RDW 13.1 (11.6-14.8) % Plt Count 328 (150-400) X10^3/uL Neut % (Auto) 67.2 (50-75) % Lymph % (Auto) 24.7 L (25-40) % [facility] % (Auto) 6.9 (3-14) % Eos % (Auto) 0.7 L (2-4) % Baso % (Auto) 0.5 (0-2) % Neut # (Auto) 8800 H (2150-7794) /uL Lymph # (Auto) 3200 (6328-7338) /uL [facility] # (Auto) 900 (0-900) /uL Eos # (Auto) 100 (0-450) /uL Baso # (Auto) 100 (0-100) /uL Sodium 137 (137-145) mmol/L Potassium 3.6 (3.4-5.1) mmol/L Chloride 105 (98-107) mmol/L Carbon Dioxide 28 (22-32) mmol/L BUN 21 H (7-17) mg/dL Creatinine 0.56 (0.52-1.04) mg/dL Estimated GFR > 60.0 (>60) mL/min BUN/Creatinine Ratio 37.5 H (6-22) Glucose 112 H (80-110) mg/dL Calcium 9.1 (8.4-10.2) mg/dL Total Creatine Kinase 97 (30-135) U/L CK-MB (CK-2) TNP CK-MB (CK-2) Rel Index TNP Troponin I < 0.012 (0.01-0.034) ng/mL NT-Pro-B Natriuret Pep 584 H (<125) pg/mL MDM Narrative Medical decision making narrative: Patient presents with concerns of allergic reaction hence decision to treat with antihistamines.However, due to HTN labs are ordered along with EKG. EKG is nonischemic and unremarkable. Chest x-ray shows no evidence of fluid overload or pneumonia. Patient's symptoms are greatly improved after the above-stated therapies. Her elevated white blood cell count is thought to be related to her use of prednisone. Blood pressure improved and symptoms are resolved, therefore decision to treat, and with what, deferred to Cardiology. Discharge Plan Departure Patient Disposition: Home Clinical Impression: Allergic reaction Qualifiers: Encounter type: initial encounter Qualified Code(s): T78.40XA - Allergy, unspecified, initial encounter Hypertension Qualifiers: Hypertension type: essential hypertension Qualified Code(s): I10 - Essential (primary) hypertension Instructions: Essential Hypertension, DI for General Allergic Reactions Activity Restrictions/Additional Instructions: *You have been diagnosed with [allergic reaction, high blood pressure] *What to do: *Take medications as directed: Prescription for EpiPen sent to [facility]. Please continue your prescription for prednisone. Additionally [id number] antihistamines such as Margi, Zyrtec or Claritin during the day and then Benadryl at night will help with the itching and swelling. Additionally, histamine type 2 ant such as Pepcid or Zantac (taken as directed) will be helpful as well *Follow up with your primary care provider in 2-3 days, call for an appointment. Let them know you were seen in the Emergency Department and that we ask that you be seen in follow up. Please notify your intensive care medicine specialist prior to your visit next week that you were seen and evaluated here for an allergic reaction and high blood pressure so they may expect to speak with you about controlling her blood pressure *Return to ER if you should have any new, worsening or concerning symptoms Prescriptions: New epinephrine [EpiPen 2-Cayetano] 0.3 mg/0.3 mL auto-injector 0.3 mg IM Q5-15M PRN (Reason: anaphylaxis) Qty: 2 RF: 0 No Action cephalexin [Keflex] 500 mg capsule 500 mg PO QID 7 Days Qty: 28 RF: 0 prednisone 20 mg tablet 20 mg PO DAILY Qty: 5 RF: 0 promethazine 12.5 mg tablet 12.5 mg PO Q6H Qty: 10 RF: 0 propranolol 120 mg capsule,extended release 24 hr 120 mg PO DAILY RF: 0 warfarin 2 mg tablet See Rx Instructions .ROUTE .COMPLEX RF: 0 triamcinolone acetonide 0.1 % cream 1 applictn TOP BID Qty: 30 RF: 0 oxybutynin chloride 15 mg tablet extended release 24hr See Rx Instructions .ROUTE .COMPLEX Qty: 90 RF: 3 alendronate 70 mg tablet See Rx Instructions .ROUTE .COMPLEX Qty: 12 RF: 2 estradiol [Estrace] 1 mg tablet 1 mg PO Q DAY Qty: 90 RF: 3 Referrals: Bradley Marie MD [Non-Staff] - Bradley Trivedi MD [Primary Care Provider] -
[2019-12-27 04:21] LABS: Add Manual Diff / Slide Review NO; Basophils Absolute Auto 100 /uL (0-100); Basophils Percent Auto 0.5 % (0-2); Eosinophils Absolute Auto 100 /uL (0-450); Eosinophils Percent Auto 0.7 % (2-4); Hematocrit 38.9 % (36-46); Hemoglobin 12.8 g/dL (12.0-16.0); Lymphocytes Absolute Auto 3200 /uL (1100-4500); Lymphocytes Percent Auto 24.7 % (25-40); Mean Corpuscular Hemoglobin 28.5 PG (26-34); Mean Corpuscular Volume 86.2 fL (80-100); Monocytes Absolute Auto 900 /uL (0-900); Monocytes Percent Auto 6.9 % (3-14); Neutrophils Absolute Auto 8800 /uL (1500-7000); Neutrophils Percent Auto 67.2 % (50-75); Platelet Count 328 X10^3/uL (150-400); Red Blood Cell Count 4.51 X10^6/uL (4.0-5.2); Red Cell Distribution Width 13.1 % (11.6-14.8); White Blood Cell Count 13.1 X10^3/uL (4.5-11.0)
[2019-12-27 04:27] LABS: BUN Creatinine Ratio 37.5 (6-22); Blood Urea Nitrogen 21 mg/dL (7-17); Calcium 9.1 mg/dL (8.4-10.2); Carbon Dioxide 28 mmol/L (22-32); Chloride 105 mmol/L (98-107); Creatine Kinase 97 U/L (30-135); Estimated Glomerular Filt Rate > 60.0 mL/min (>60); Glucose 112 mg/dL (80-110); HEMOLYSIS 18 (0-50); Potassium 3.6 mmol/L (3.4-5.1); Sodium 137 mmol/L (137-145)
[2019-12-27 04:39] LABS: NT-proBNP (BNP-Adult 18+) 584 pg/mL (<125); Troponin I < 0.012 ng/mL (0.01-0.034)
== END 2019-12-27 05:25 | disposition home or self-care (01) ==
PROVIDERS: Emergency Provider Emergency Medicine; Family Provider Internal Medicine; PCP Internal Medicine
DX: T78.40XA Allergy, unspecified, initial encounter (principal); I10 Essential (primary) hypertension
CPT/HCPCS: 36415; 71045; 80048; 82550; 83880; 84484; 85025; 93005; 96365; 96375; 99284; J1200

== ENCOUNTER 2020-01-21 18:41 | Emergency (ER) | payer MEDICARE, SELFPAY ==
[2020-01-21] VITALS (9 sets, daily range): BP systolic 176–198; BP diastolic 75–86; PULSE 60–68; RESP 15–25; TEMP 36.6; O2SAT 96–97; BMI 23.0
--- NOTE | 2020-01-21 19:20 | DI.RAD.S_ITS ---
PROCEDURE: XR CHEST 1V INDICATIONS: chest pain TECHNIQUE: One view of the chest was acquired. COMPARISON: [facility], CR, XR CHEST 1V, 12/27/2019, 4:28. FINDINGS: Surgical changes and devices: Left chest wall AICD and leads appear stable in position. Lungs and pleura: Visualized lungs are clear. No pleural effusions or pneumothorax. Mediastinum: Mediastinal contours appear unchanged. Heart size is enlarged. Bones and chest wall: No suspicious bony lesions. Overlying soft tissues appear unremarkable. IMPRESSION: 1. No acute cardiopulmonary disease. Dictated by: Sergio Fragoso M.D. on 01/21/2020 at 19:42 Approved by: Sergio Fragoso M.D. on 01/21/2020 at 19:47
[2020-01-21 19:38] LABS: Add Manual Diff / Slide Review NO; Basophils Absolute Auto 100 /uL (0-100); Basophils Percent Auto 1.1 % (0-2); Eosinophils Absolute Auto 100 /uL (0-450); Eosinophils Percent Auto 1.1 % (2-4); Hematocrit 39.2 % (36-46); Hemoglobin 13.4 g/dL (12.0-16.0); Lymphocytes Absolute Auto 3000 /uL (1100-4500); Lymphocytes Percent Auto 36.5 % (25-40); Mean Corpuscular HGB Conc 34.2 % (30-36); Mean Corpuscular Hemoglobin 29.4 PG (26-34); Mean Corpuscular Volume 85.9 fL (80-100); Monocytes Absolute Auto 600 /uL (0-900); Monocytes Percent Auto 7.2 % (3-14); Neutrophils Absolute Auto 4400 /uL (1500-7000); Neutrophils Percent Auto 54.1 % (50-75); Platelet Count 327 X10^3/uL (150-400); Red Blood Cell Count 4.56 X10^6/uL (4.0-5.2); Red Cell Distribution Width 13.4 % (11.6-14.8); White Blood Cell Count 8.1 X10^3/uL (4.5-11.0)
[2020-01-21 19:54] LABS: D Dimer < 200 ng/mL (<230)
[2020-01-21 19:56] LABS: Alanine Aminotransferase 19 IU/L (<35); Albumin 3.5 g/dL (3.5-5.0); Albumin Globulin Ratio 1.3 (1.0-2.8); Alkaline Phosphatase 69 U/L (38-126); Aspartate Aminotransferase 24 IU/L (14-36); BUN Creatinine Ratio 27.6 (6-22); Bilirubin Total 0.3 mg/dL (0.2-1.3); Blood Urea Nitrogen 16 mg/dL (7-17); Calcium 8.9 mg/dL (8.4-10.2); Carbon Dioxide 32 mmol/L (22-32); Chloride 101 mmol/L (98-107); Creatine Kinase < 20 U/L (30-135); Estimated Glomerular Filt Rate > 60.0 mL/min (>60); Globulin 2.7 g/dL (1.7-4.1); Glucose 116 mg/dL (80-110); HEMOLYSIS 26 (0-50); Lipase 91 U/L (23-300); Sodium 136 mmol/L (137-145); Total Protein 6.2 g/dL (6.3-8.2)
[2020-01-21 20:08] LABS: NT-proBNP (BNP-Adult 18+) 255 pg/mL (<125); Troponin I < 0.012 ng/mL (0.01-0.034)
--- NOTE | 2020-01-21 20:39 | ED_ITS ---
HPI - Extremity Problem <DESTINY Rendon - Last Filed: 01/21/20 22:22> General Chief complaint: Extremity Problem,Nontraumatic Stated complaint: bee sting couple weeks ago, hand swelling now Time Seen by Provider: 01/21/20 18:43 Source: patient Mode of arrival: Ambulatory Limitations: no limitations History of Present Illness HPI Narrative: This is a 74-year-old female, nonsmoker, who has history of prolonged QT and a pacemaker presents to ED with a friend with chief complain of left hand to mid upper arm pins and needles, subjective swelling and throbbing pain with left calf throbbing pain for last 3 days. Patient denies warmth, redness, or swelling to lower extremities. She has associated symptoms as dizziness but denies chest pain, dyspnea, cold sweats, nausea or vomiting. Patient denies neck pain or trauma to neck. Patient was in ED about 3 weeks ago after a bee sting in dorsal aspect of left hand and had similar symptoms with swelling, redness, and pain which was resolved after a week or so. Patient thought she had another bee sting on her arm but was not able to find any open skin or stings. Patient denies history of blood clots but receives hormone rep lacement therapy after the menopause. She is currently taking anticoagulant warfarin daily. Patient reports pacemaker was in placed 9 years ago and is looking replacement next year. Patient reports she has an appointment with welding equipment repairer supervisor in a couple of weeks. Related Data Home Medications Medication Instructions Recorded Confirmed propranolol 120 mg capsule,24 120 mg PO DAILY 12/04/17 01/21/20 hr,extended release warfarin 2 mg tablet 2 mg PO DAILY tab 12/04/17 01/21/20 alendronate 70 mg PO DAILY 01/21/20 01/21/20 conjugated estrogens [Premarin] 1.25 mg PO DAILY 01/21/20 01/21/20 oxybutynin chloride 15 mg PO DAILY 01/21/20 01/21/20 Previous Rx's Medication Instructions Recorded estradiol 1 mg tablet 1 mg PO Q DAY #90 tab 12/17/19 Allergies Allergy/AdvReac Type Severity Reaction Status Date / Time procaine Allergy Intermediate Unconscious Verified 01/21/20 18:56 ondansetron [ONDANSETRON] Allergy Mild Unconscious Verified 01/21/20 18:56 Review of Systems <DESTINY Rendon - Last Filed: 01/21/20 22:22> Review of Systems Narrative: General: Denies fever, chills, fatigue, malaise, sweats. HEENT: Denies sinus pain, ear pain, sore throat, difficulty swallowing, dizziness. Respiratory: Denies dyspnea, cough, wheezing, hemoptysis, sputum. Cardiovascular: Denies chest pain, palpitations, orthopnea, edema, (+) dizziness. Gastrointestinal: Denies nausea, vomiting, abdominal pain, diarrhea, constipation, melena. : Denies dysuria, frequency, incontinence, hematuria, urinary retention. Musculoskeletal: See HPI Skin: Denies rash, skin lesions, or other. No erythema or edema to upper and lower extremities. Neurologic: Denies weakness, headache, numbness, change in speech, confusion, seizures, incoordination. Psychiatric: No concerning psychosocial issues. 12-point review of systems is negative except for those stated above. Patient History <DESTINY Rendon - Last Filed: 01/21/20 22:22> Medical History (Updated 01/21/20 @ 21:45 by DESTINY Rendon) Atrial fibrillation by electrocardiogram (Acute) Bee sting (Acute) Menopause (Chronic) Prolonged QT interval (03/15/13) Surgical History Implantable cardioverter-defibrillator (ICD) in situ Status post appendectomy Status post breast biopsy Status post hysterectomy with oophorectomy Status post tonsillectomy and adenoidectomy Social History Smoking Status: Never smoker Smoking Status: Never smoker alcohol intake frequency: 0-2 drinks per day Substance Use Type: does not use Exam <DESTINY Rendon - Last Filed: 01/21/20 22:22> Narrative Exam Narrative: GEN: Alert, oriented x 3, well appearing and nourished, and in no acute distress. Head: Normal cephalic, atraumatic. No scalp or temporal tenderness, palpable mass or rash. EYES: Pupils are equal, round, and reactive to light and accommodation. Extraoc ular muscles are intact bilaterally. There is no subconjunctival hemorrhage, exudate and sclera non-icteric. ENT: Hearing grossly intact. Nose without bleeding, purulent discharge or deviation. Mucous membrane moist, no mucosal lesion. Throat without erythema, tonsillar hypertrophy or exudate. Uvula in midline, airway patent. Neck: Trachea in midline. No JVD, non-tender without lymphadenopathy. No masses or thyroid megaly. Supple, non-tender in C-spine and no meningeal signs. CARDIAC: Normal regular rate and rhythm without murmurs, gallops, or rubs. No chest wall tenderness. No peripheral edema, cyanosis or pallor. Capillary refill is less than 2 seconds. RESPIRATORY: Lungs are clear to auscultate bilaterally. No cough, wheezes, rales, or rhonchi. No stridor, respiratory distress, increase work of breathing, or accessary muscle used. ABD: Abdomen soft, nontender and non-distended. No guarding or rebound tenderness to palpate. Bowel sounds are normal in all 4 quadrants. There is no palpable masses or organomegaly. EXT: Full painless ROM of all extremities and strength bilaterally equal. No deformity, erythema, warmth to upper and lower extremities. Intact distal pulses with sensation in left arm and left leg. SKIN: Warm, dry, normal color for patient. No erythema, lesions or rash over visible areas. BACK: Nontender without deformity or crepitance. No flank tenderness. NEUROLOGICAL: Alert and oriented to place, time and person. Sensation and motor function intact bilaterally. No facial droops, dysphasia. PSYCHIATRIC: Good judgement and reason, without hallucinations, abnormal affect or abnormal behaviors during the examination. Patient is not suicidal. Initial Vital Signs Initial Vital Signs: Vital Signs Temperature 97.8 F 01/21/20 18:51 Pulse Rate 68 01/21/20 18:51 Respiratory Rate 16 01/21/20 18:51 Blood Pressure 196/86 H 01/21/20 18:51 Pulse Oximetry 97 01/21/20 18:51 <Ramakrishna Linares DO - Last Filed: 01/21/20 22:42> Initial Vital Signs Initial Vital Signs: Vital Signs Temperature 97.8 F 01/21/20 18:51 Pulse Rate 68 01/21/20 18:51 Respiratory Rate 16 01/21/20 18:51 Blood Pressure 196/86 H 01/21/20 18:51 Pulse Oximetry 97 01/21/20 18:51 Scores <Jony Blandon-Oras, MEDICAL SERVICES ASSISTANT - Last Filed: 01/21/20 22:22> GCS [place] coma scale eye opening: Spontaneous [place] coma scale verbal response: [place] coma scale motor response: Obey commands [place] coma scale total score: 15 HEART Score Heart Score history: Slightly Suspicious Heart Score EKG: Non-Specific repolarization disturbance Heart Score Age: > or = 65 years old Heart Score risk factors: 1-2 risk factors Heart Score troponin: < or = to normal limit Heart Score Total: 4 Course <LESLIE RendonP - Last Filed: 01/21/20 22:22> Orders Ordered: ED Orders 01/21/20 19:20 XR chest 1V Stat 01/21/20 19:30 Complete Blood Count AUTO DIFF Stat Comprehensive Metabolic Panel Stat D Dimer Stat Lipase Stat Magnesium Stat NT-proBNP (BNP-Adult 18+) Stat Partial Thromboplastin Time Stat Prothrombin Time INR Stat Troponin & CK Cardiac Panel Stat Discontinued Medications Ketorolac Tromethamine (Toradol) 15 mg IV NOW ONE Stop: 01/21/20 20:49 Last Admin: 01/21/20 20:55 Dose: 15 mg Documented by: YOGI Consultations Consultation #1: Consulted Dr. Moseley (welding equipment repairer supervisor) at [facility] with lab, EKG, HPI, physical finding and he recommended to follow-up at the clinic next week and she will receive a phone call from the clinic to see confirm the appointment. No further intervention was recommended at this time. Time: 21:25 Consultation #2: The patient staffed with Dr. Linares with findings and treatment plan and follow ups Time: 21:25 Vital Signs Vital signs: Vital Signs - 8 hr 01/21/20 18:51 01/21/20 19:33 01/21/20 20:00 Temperature 97.8 F Pulse Rate 68 60 60 Respiratory Rate 16 24 21 Blood Pressure 196/86 H Pulse Oximetry 97 97 96 01/21/20 20:01 01/21/20 20:30 01/21/20 20:31 Temperature Pulse Rate 60 60 60 Respiratory Rate 25 H 20 15 Blood Pressure 180/75 H 183/82 H Pulse Oximetry 97 96 96 01/21/20 21:00 01/21/20 21:30 01/21/20 21:31 Temperature Pulse Rate 60 60 60 Respiratory Rate 23 22 Blood Pressure 198/86 H 176/82 H Pulse Oximetry 96 96 96 <Ramakrishna Linares DO - Last Filed: 01/21/20 22:42> Orders Ordered: ED Orders 01/21/20 19:20 XR chest 1V Stat 01/21/20 19:30 Complete Blood Count AUTO DIFF Stat Comprehensive Metabolic Panel Stat D Dimer Stat Lipase Stat Magnesium Stat NT-proBNP (BNP-Adult 18+) Stat Partial Thromboplastin Time Stat Prothrombin Time INR Stat Troponin & CK Cardiac Panel Stat Discontinued Medications Ketorolac Tromethamine (Toradol) 15 mg IV NOW ONE Stop: 01/21/20 20:49 Last Admin: 01/21/20 20:55 Dose: 15 mg Documented by: YOGI Vital Signs Vital signs: Vital Signs - 8 hr 01/21/20 18:51 01/21/20 19:33 01/21/20 20:00 Temperature 97.8 F Pulse Rate 68 60 60 Respiratory Rate 16 24 21 Blood Pressure 196/86 H Pulse Oximetry 97 97 96 01/21/20 20:01 01/21/20 20:30 01/21/20 20:31 Temperature Pulse Rate 60 60 60 Respiratory Rate 25 H 20 15 Blood Pressure 180/75 H 183/82 H Pulse Oximetry 97 96 96 01/21/20 21:00 01/21/20 21:30 01/21/20 21:31 Temperature Pulse Rate 60 60 60 Respiratory Rate 23 22 Blood Pressure 198/86 H 176/82 H Pulse Oximetry 96 96 96 MDM - Extremity (Nontraumatic) <DESTINY Rendon - Last Filed: 01/21/20 22:22> Differential Diagnosis Differential diagnosis: Likely deep venous thrombosis of upper extremity, deep vein thrombosis of lower extremity and other (Paresthesia, cervical rad iculopathy, atypical chest pain, NSTEMI, electrolytes imbalance) Medical Records Attestation: I reviewed the patient's medical records. Lab Data Attestation: I reviewed the patient's lab results. Result diagrams: 01/21/20 19:30 01/21/20 19:30 Labs: Lab Results 01/21/20 01/21/20 01/21/20 Range/Units 19:30 19:30 19:30 WBC 8.1 (4.5-11.0) X10^3/uL RBC 4.56 (4.0-5.2) X10^6/uL Hgb 13.4 (12.0-16.0) g/dL Hct 39.2 (36-46) % MCV 85.9 (80-100) fL MCH 29.4 (26-34) PG MCHC 34.2 (30-36) % RDW 13.4 (11.6-14.8) % Plt Count 327 (150-400) X10^3/uL Neut % (Auto) 54.1 (50-75) % Lymph % (Auto) 36.5 (25-40) % [place] % (Auto) 7.2 (3-14) % Eos % (Auto) 1.1 L (2-4) % Baso % (Auto) 1.1 (0-2) % Neut # (Auto) 4400 (1268-5161) /uL Lymph # (Auto) 3000 (9843-6542) /uL [place] # (Auto) 600 (0-900) /uL Eos # (Auto) 100 (0-450) /uL Baso # (Auto) 100 (0-100) /uL PT (10.1-12.7) SECONDS INR (0.9-1.3) APTT (26.4-36.2) SECONDS D-Dimer < 200 (<230) ng/mL Sodium 136 L (137-145) mmol/L Potassium 4.0 (3.4-5.1) mmol/L Chloride 101 (98-107) mmol/L Carbon Dioxide 32 (22-32) mmol/L BUN 16 (7-17) mg/dL Creatinine 0.58 (0.52-1.04) mg/dL Estimated GFR > 60.0 (>60) mL/min BUN/Creatinine Ratio 27.6 H (6-22) Glucose 116 H (80-110) mg/dL Calcium 8.9 (8.4-10.2) mg/dL Magnesium (1.6-2.3) mg/dL Total Bilirubin 0.3 (0.2-1.3) mg/dL AST 24 (14-36) IU/L ALT 19 (<35) IU/L Alkaline Phosphatase 69 (38-126) U/L Total Creatine Kinase < 20 L (30-135) U/L CK-MB (CK-2) TNP CK-MB (CK-2) Rel Index TNP Troponin I < 0.012 (0.01-0.034) ng/mL NT-Pro-B Natriuret Pep 255 H (<125) pg/mL Total Protein 6.2 L (6.3-8.2) g/dL Albumin 3.5 (3.5-5.0) g/dL Globulin 2.7 (1.7-4.1) g/dL Albumin/Globulin Ratio 1.3 (1.0-2.8) Lipase 91 (23-300) U/L 01/21/20 01/21/20 Range/Units 19:30 19:30 WBC (4.5-11.0) X10^3/uL RBC (4.0-5.2) X10^6/uL Hgb (12.0-16.0) g/dL Hct (36-46) % MCV (80-100) fL MCH (26-34) PG MCHC (30-36) % RDW (11.6-14.8) % Plt Count (150-400) X10^3/uL Neut % (Auto) (50-75) % Lymph % (Auto) (25-40) % [place] % (Auto) (3-14) % Eos % (Auto) (2-4) % Baso % (Auto) (0-2) % Neut # (Auto) (9355-6331) /uL Lymph # (Auto) (8527-8569) /uL [place] # (Auto) (0-900) /uL Eos # (Auto) (0-450) /uL Baso # (Auto) (0-100) /uL PT 31.1 H (10.1-12.7) SECONDS INR 2.7 H (0.9-1.3) APTT 43 H D (26.4-36.2) SECONDS D-Dimer (<230) ng/mL Sodium (137-145) mmol/L Potassium (3.4-5.1) mmol/L Chloride (98-107) mmol/L Carbon Dioxide (22-32) mmol/L BUN (7-17) mg/dL Creatinine (0.52-1.04) mg/dL Estimated GFR (>60) mL/min BUN/Creatinine Ratio (6-22) Glucose (80-110) mg/dL Calcium (8.4-10.2) mg/dL Magnesium 1.8 (1.6-2.3) mg/dL Total Bilirubin (0.2-1.3) mg/dL AST (14-36) IU/L ALT (<35) IU/L Alkaline Phosphatase (38-126) U/L Total Creatine Kinase (30-135) U/L CK-MB (CK-2) CK-MB (CK-2) Rel Index Troponin I (0.01-0.034) ng/mL NT-Pro-B Natriuret Pep (<125) pg/mL Total Protein (6.3-8.2) g/dL Albumin (3.5-5.0) g/dL Globulin (1.7-4.1) g/dL Albumin/Globulin Ratio (1.0-2.8) Lipase (23-300) U/L Imaging Data Chest x-ray: Radiologist's Impression: [address] [address] XRay Report Signed Patient: Graciela Rodriguez GMR#: [id number] : 8Acct:[id number] Age/Sex: 74 / FDate of Service: 01/21/20 Loc: ED Accession Number: [id number] Procedure: XR chest 1V Ordering Provider: Jony Moe PROCEDURE: XR CHEST 1V INDICATIONS: chest pain TECHNIQUE: One view of the chest was acquired. COMPARISON: [facility], , XR CHEST 1V, 12/27/2019, 4:28. FINDINGS: Surgical changes and devices: Left chest wall AICD and leads appear stable in position. Lungs and pleura: Visualized lungs are clear. No pleural effusions or pneumothorax. Mediastinum: Mediastinal contours appear unchanged. Heart size is enlarged. Bones and chest wall: No suspicious bony lesions. Overlying soft tissues appear unremarkable. IMPRESSION: 1. No acute cardiopulmonary disease. Dictated by: Sergio Fragoso M.D. on 01/21/2020 at 19:42 Approved by: Sergio Fragoso M.D. on 01/21/2020 at 19:47 ECG Data Attestation EKG: I personally reviewed and interpreted this ECG as follows: Prior ECG tracings: available for review Interpretation: Atrial-paced rhythm with prolonged AV conduction with occasional ventricular paced complexes with PVC rate at 71 Left dominant axis. MS interval 264, QRS duration 80, QT/QTC 534/[address] and T a abnormality in lateral leads. Previous EKG shows moderate TA abnormality MDM Narrative Medical decision making narrative: Physical exam is not consistent with cellulitis, DVT in upper or lower extremities. D dimer is negative as <200 and no leukocytosis. Patient is currently taking warfarin daily and INR is 2.7. US of lower extremity was deferred. EKG shows prolonged QT and atrial paced rhythm with occasional ventricular paced complexes with PVC rate at 71. Patient has pacemaker in placed 9 years ago due to history of prolonged QT as she has family history. Unremarkable chemistry test with normal magnesium of 1.8 and negative cardiac enzymes. No chest pain or breathing difficulty but some dizziness with her symptoms. No other neurological deficit appreciated during exam. ProBNP with slight elevation of 255 and the patient reports tightness around the ring. Chest xray shows no acute findings. Since the patient has symptoms for last 3 days, no repeat cardiac enzymes were drawn. Dr. Moseley (welding equipment repairer supervisor) consulted with the findings and he will follow-up the patient at the clinic and we will give the patient a call next week Friday to confirm this. No further intervention or treatment was recommended at this time. It is unclear of the etiology of left upper arm paresthesia without obvious bee sting to associate at this time and left lower calf pain. Patient was medicated with IV Toradol which helped with lower leg discomfort. Will treat as musculoskeletal discomfort at this time. Patient advised to follow-up with primary care physician with elevated blood pressure. Advised to track blood pressure at home around seen time couple of times daily before the next appointment and to share this information with primary care physician. She is currently taking propanolol ER but otherwise no other HTN or rate controlling medication and family member states they have noticed elevated BP at home. Return precautions were discussed with patient and patient verbalized understanding and agreement with the treatment plan. <Ramakrishna Linares, - Last Filed: 01/21/20 22:42> Lab Data Labs: Lab Results 01/21/20 01/21/20 01/21/20 Range/Units 19:30 19:30 19:30 WBC 8.1 (4.5-11.0) X10^3/uL RBC 4.56 (4.0-5.2) X10^6/uL Hgb 13.4 (12.0-16.0) g/dL Hct 39.2 (36-46) % MCV 85.9 (80-100) fL MCH 29.4 (26-34) PG MCHC 34.2 (30-36) % RDW 13.4 (11.6-14.8) % Plt Count 327 (150-400) X10^3/uL Neut % (Auto) 54.1 (50-75) % Lymph % (Auto) 36.5 (25-40) % [place] % (Auto) 7.2 (3-14) % Eos % (Auto) 1.1 L (2-4) % Baso % (Auto) 1.1 (0-2) % Neut # (Auto) 4400 (3254-1795) /uL Lymph # (Auto) 3000 (3569-0775) /uL [place] # (Auto) 600 (0-900) /uL Eos # (Auto) 100 (0-450) /uL Baso # (Auto) 100 (0-100) /uL PT (10.1-12.7) SECONDS INR (0.9-1.3) APTT (26.4-36.2) SECONDS D-Dimer < 200 (<230) ng/mL Sodium 136 L (137-145) mmol/L Potassium 4.0 (3.4-5.1) mmol/L Chloride 101 (98-107) mmol/L Carbon Dioxide 32 (22-32) mmol/L BUN 16 (7-17) mg/dL Creatinine 0.58 (0.52-1.04) mg/dL Estimated GFR > 60.0 (>60) mL/min BUN/Creatinine Ratio 27.6 H (6-22) Glucose 116 H (80-110) mg/dL Calcium 8.9 (8.4-10.2) mg/dL Magnesium (1.6-2.3) mg/dL Total Bilirubin 0.3 (0.2-1.3) mg/dL AST 24 (14-36) IU/L ALT 19 (<35) IU/L Alkaline Phosphatase 69 (38-126) U/L Total Creatine Kinase < 20 L (30-135) U/L CK-MB (CK-2) TNP CK-MB (CK-2) Rel Index TNP Troponin I < 0.012 (0.01-0.034) ng/mL NT-Pro-B Natriuret Pep 255 H (<125) pg/mL Total Protein 6.2 L (6.3-8.2) g/dL Albumin 3.5 (3.5-5.0) g/dL Globulin 2.7 (1.7-4.1) g/dL Albumin/Globulin Ratio 1.3 (1.0-2.8) Lipase 91 (23-300) U/L 01/21/20 01/21/20 Range/Units 19:30 19:30 WBC (4.5-11.0) X10^3/uL RBC (4.0-5.2) X10^6/uL Hgb (12.0-16.0) g/dL Hct (36-46) % MCV (80-100) fL MCH (26-34) PG MCHC (30-36) % RDW (11.6-14.8) % Plt Count (150-400) X10^3/uL Neut % (Auto) (50-75) % Lymph % (Auto) (25-40) % [place] % (Auto) (3-14) % Eos % (Auto) (2-4) % Baso % (Auto) (0-2) % Neut # (Auto) (7965-2712) /uL Lymph # (Auto) (5843-1491) /uL [place] # (Auto) (0-900) /uL Eos # (Auto) (0-450) /uL Baso # (Auto) (0-100) /uL PT 31.1 H (10.1-12.7) SECONDS INR 2.7 H (0.9-1.3) APTT 43 H D (26.4-36.2) SECONDS D-Dimer (<230) ng/mL Sodium (137-145) mmol/L Potassium (3.4-5.1) mmol/L Chloride (98-107) mmol/L Carbon Dioxide (22-32) mmol/L BUN (7-17) mg/dL Creatinine (0.52-1.04) mg/dL Estimated GFR (>60) mL/min BUN/Creatinine Ratio (6-22) Glucose (80-110) mg/dL Calcium (8.4-10.2) mg/dL Magnesium 1.8 (1.6-2.3) mg/dL Total Bilirubin (0.2-1.3) mg/dL AST (14-36) IU/L ALT (<35) IU/L Alkaline Phosphatase (38-126) U/L Total Creatine Kinase (30-135) U/L CK-MB (CK-2) CK-MB (CK-2) Rel Index Troponin I (0.01-0.034) ng/mL NT-Pro-B Natriuret Pep (<125) pg/mL Total Protein (6.3-8.2) g/dL Albumin (3.5-5.0) g/dL Globulin (1.7-4.1) g/dL Albumin/Globulin Ratio (1.0-2.8) Lipase (23-300) U/L Discharge Plan Departure Patient Disposition: Home Clinical Impression: Paresthesia, History of prolonged Q-T interval on ECG Calf pain Qualifiers: Laterality: left Qualified Code(s): M79.662 - Pain in left lower leg Discharge Date/Time: 01/21/20 22:01 Instructions: DI for Arm Pain, DI for Leg Pain Activity Restrictions/Additional Instructions: You have been diagnosed with [paresthesia in left upper arm, left calf pain, history of prolonged QT. Lab tests are assuring. Normal D-dimer, Mg and negative cardiac enzymes and unremarkable pro BNP. EKG shows paced rhythm with prolonged AV conduction and prolonged QT. INR is 2.7 today. Your blood p ressure was elevated in ED from 170-190/70-80's]. What to do: *Take your medications as directed. You can take [id number] Tylenol as needed for discomfort. *Follow up with your primary care provider in 2-3 days, call for an appointment. Let them know you were seen in the ED and that we asked you to be seen in follow up. Also please follow-up with welding equipment repairer supervisor and I spoke with Dr. Pardip hernandes. *Return to ED if you have any new, worsening, or concerning symptoms, such as [chest pain, breathing difficulty, unable to tolerate fluids, cold sweats, worsening pain, fever or chills or any acute concerns]. Prescriptions: No Action propranolol 120 mg capsule,extended release 24 hr 120 mg PO DAILY RF: 0 warfarin 2 mg tablet 2 mg PO DAILY RF: 0 estradiol [Estrace] 1 mg tablet 1 mg PO Q DAY Qty: 90 RF: 3 Premarin 1.25 mg Tablet 1.25 mg PO DAILY RF: 0 oxybutynin chloride 15 mg tablet extended release 24hr 15 mg PO DAILY RF: 0 alendronate 70 mg tablet 70 mg PO DAILY RF: 0 Referrals: Kira Suero ARNP [Non-Staff] - Bradley Marie MD [Non-Staff] - <Ramakrishna Linares DO - Last Filed: 01/21/20 22:42> Cosign ED Attending Cosignature Attestation: I was immediately available in the department for consultation. This documentation has been reviewed and I agree with assessment and plan. Supervised by Ramakrishna Linares DO
[2020-01-21] MEDS: KETOROLAC 60 MG/2 ML VIAL 15 MG IV (20:55)
[2020-01-21 21:03] LABS: Magnesium 1.8 mg/dL (1.6-2.3)
[2020-01-21 21:20] LABS: INR 2.7 (0.9-1.3); Prothrombin Time 31.1 SECONDS (10.1-12.7)
[2020-01-21 21:23] LABS: PTT Partial Thromboplastin Tim 43 SECONDS (26.4-36.2)
== END 2020-01-21 22:01 | disposition home or self-care (01) ==
PROVIDERS: Emergency Provider Nurse Practitioner Family; Family Provider Internal Medicine; PCP Internal Medicine
DX: R20.2 Paresthesia of skin (principal); R94.31 Abnormal electrocardiogram [ECG] [EKG]; Z87.898 Personal history of other specified conditions; M79.662 Pain in left lower leg; R07.9 Chest pain, unspecified; Z79.01 Long term (current) use of anticoagulants; I48.91 Unspecified atrial fibrillation
CPT/HCPCS: 36415; 71045; 80053; 82550; 83690; 83735; 83880; 84484; 85025; 85379; 85610; 85730; 93005; 93041; 96374; 99284; J1885

== ENCOUNTER → 2020-03-27 09:30 | Outpatient (CLI) | payer MEDICARE, SELFPAY | PROVIDERS: Family Provider Internal Medicine; PCP Internal Medicine; Referring Provider Internal Medicine; Visit Provider Internal Medicine | DX: M85.851 Other specified disorders of bone density and structure, right thigh (principal); Z78.0 Asymptomatic menopausal state; Z90.722 Acquired absence of ovaries, bilateral; Z82.62 Family history of osteoporosis | CPT/HCPCS: 77080 ==

== ENCOUNTER 2022-05-12 19:51 | Emergency (ER) | payer MEDICARE, SELFPAY ==
[2022-05-12 20:01] VITALS: BP 171/79; PULSE 65; RESP 16; TEMP 36.7; O2SAT 97; BMI 22.1
--- NOTE | 2022-05-12 20:32 | ED_ITS ---
HPI - General Adult General Chief complaint: Upper Respiratory Symptoms Stated complaint: pos cov test/congestion/abd pain Time Seen by Provider: 05/12/22 20:07 History of Present Illness HPI narrative: 76-year-old woman with a history of long QT syndrome and pacer defibrillator in place, palpitations, anticoagulated on Eliquis, postmenopausal with osteoporosis presents with 3 days of upper respiratory complaints myalgias and today increasing dizziness headache nausea and abdominal pain. Home COVID test showed a ?very faint positive line?. She has been vaccinated and has had previous COVID. She reports no chest pain, palpitations she has not actually been vomiting, no diarrhea no constipation. Related Data Home Medications Medication Instructions Recorded Confirmed propranolol 120 mg capsule,24 120 mg PO DAILY 12/04/17 01/21/20 hr,extended release warfarin 2 mg tablet 2 mg PO DAILY 12/04/17 01/21/20 alendronate 70 mg tablet 70 mg PO DAILY 01/21/20 01/21/20 conjugated estrogens 1.25 mg 1.25 mg PO DAILY 01/21/20 01/21/20 tablet (Premarin) Previous Rx's Medication Instructions Recorded estradiol 1 mg tablet (Estrace) 1 mg PO Q DAY #90 tabs 12/17/19 oxybutynin chloride 15 mg 15 mg PO DAILY #90 tabs 04/24/20 tablet,extended release 24 hr Allergies Allergy/AdvReac Type Severity Reaction Status Date / Time procaine Allergy Intermediate Unconscious Verified 01/21/20 18:56 ondansetron [ONDANSETRON] Allergy Mild Unconscious Verified 01/21/20 18:56 Review of Systems Review of Systems Narrative: Remainder of complete review of systems is otherwise unremarkable except for that included in the HPI. Patient History Medical History (Updated 05/12/22 @ 22:39 by Temitope Johnson MD) Atrial fibrillation by electrocardiogram Bee sting Menopause Prolonged QT interval (03/15/13) Surgical History Implantable cardioverter-defibrillator (ICD) in situ Status post appendectomy Status post breast biopsy Status post hysterectomy with oophorectomy Status post tonsillectomy and adenoidectomy Social History Smoking Status: Never smoker Smoking Status: Never smoker alcohol intake frequency: 0-2 drinks per day Substance Use Type: does not use Exam Initial Vital Signs Initial Vital Signs: Vital Signs Temperature 98.0 F 05/12/22 20:01 Pulse Rate 65 05/12/22 20:01 Respiratory Rate 16 05/12/22 20:01 Blood Pressure 171/79 H 05/12/22 20:01 Pulse Oximetry 97 05/12/22 20:01 Oxygen Delivery Method 05/12/22 20:01 General: Fatigued appearing but in no acute distress. Able to give a complete and coherent history. Well-nourished well-developed HEENT: Moist mucous membranes, normal sclera with reactive pupils, Neck: No JVD, supple Respiratory: Lungs are clear to auscultation, no wheezing no rales no rhonchi. Full and symmetrical air movement Cardiac: Regular rate and rhythm no murmurs no bruits Abdomen: Soft, nontender, good bowel tones, no flank pain Skin: Warm and dry, no rashes Neurologic: Grossly neurologically intact with no obvious asymmetries or abnormalities Extremities: No trauma, well perfused Psych: Cooperative, appropriate insight and affect Course Orders Ordered: ED Orders 05/12/22 20:00 Covid-19 + FLU A/B + RSV - PCR Stat 05/12/22 20:38 XR chest 1V Stat EKG-12 Lead Stat 05/12/22 20:45 Complete Blood Count AUTO DIFF Stat Comprehensive Metabolic Panel Stat Troponin I Stat Discontinued Medications Diphenhydramine HCl (Diphenhydramine 50 Mg/Ml Vial) 25 mg IV NOW ONE Stop: 05/12/22 21:26 Last Admin: 05/12/22 21:28 Dose: 25 mg Documented By: SHAHZAD Sodium Chloride (Normal Saline 0.9%) 1,000 mls @ 1,000 mls/hr IV BOLUS ONE Stop: 05/12/22 21:36 Last Admin: 05/12/22 20:50 Dose: 1,000 mls/hr Documented By: SB Metoclopramide HCl (Metoclopramide 10 Mg/2 Ml Inj) 10 mg IV NOW ONE Stop: 05/12/22 20:38 Last Admin: 05/12/22 20:50 Dose: 10 mg Documented By: SB Vital Signs Vital signs: Vital Signs - 8 hr 05/12/22 20:01 Temperature 98.0 F Pulse Rate 65 Respiratory Rate 16 Blood Pressure 171/79 H Pulse Oximetry 97 Oxygen Delivery Method Room Air Medical Decision Making Lab Data Result diagrams: 05/12/22 20:45 05/12/22 20:45 Labs: Lab Results 05/12/22 05/12/22 05/12/22 Range/Units 20:00 20:45 20:45 WBC 7.5 (4.5-11.0) X10^3/uL RBC 4.61 (4.0-5.2) X10^6/uL Hgb 13.4 (12.0-16.0) g/dL Hct 39.6 (36-46) % MCV 85.7 (80-100) fL MCH 29.0 (26-34) PG MCHC 33.9 (30-36) % RDW 13.6 (11.6-14.8) % Plt Count 265 (150-400) X10^3/uL Neut % (Auto) 79.9 H (50-75) % Lymph % (Auto) 8.1 L (25-40) % Geary % (Auto) 11.7 (3-14) % Eos % (Auto) 0.0 L (2-4) % Baso % (Auto) 0.3 (0-2) % Neut # (Auto) 6000 (3958-2834) /uL Lymph # (Auto) 600 L (3426-3411) /uL Geary # (Auto) 900 (0-900) /uL Eos # (Auto) 0 (0-450) /uL Baso # (Auto) 0 (0-100) /uL Sodium 136 L (137-145) mmol/L Potassium 3.3 L (3.4-5.1) mmol/L Chloride 100 (98-107) mmol/L Carbon Dioxide 26 (22-32) mmol/L BUN 13 (7-17) mg/dL Creatinine 0.59 (0.52-1.04) mg/dL Estimated GFR > 60 (>60) mL/min BUN/Creatinine Ratio 22.0 (6-22) Glucose 163 H (80-110) mg/dL Calcium 8.4 (8.4-10.2) mg/dL Total Bilirubin 0.5 (0.2-1.3) mg/dL AST 22 (14-36) IU/L ALT 23 (<35) IU/L Alkaline Phosphatase 82 (38-126) U/L Troponin I < 0.012 (0.01-0.034) ng/mL Total Protein 6.9 (6.3-8.2) g/dL Albumin 3.9 (3.5-5.0) g/dL Globulin 3.0 (1.7-4.1) g/dL Albumin/Globulin Ratio 1.3 (1.0-2.8) SARS-CoV-2 (PCR) Positive H (Negative) Influenza A (RT-PCR) Flu a negative (NEGATIVE) Influenza B (RT-PCR) Flu b negative (NEGATIVE) RSV (PCR) Negative (Negative) Imaging Data Chest x-ray: Radiologist's Impression: FINDINGS: Surgical changes and devices: Pacemaker. Lungs and pleura: Lungs are clear. No pleural effusions or pneumothorax. Mediastinum: Mediastinal contours appear normal. Heart size is enlarged. Bones and chest wall: No suspicious bony lesions. Overlying soft tissues appear unremarkable. IMPRESSION: No acute pulmonary process. Dictated by: Tiara Arguello M.D. on 05/12/2022 at 21:04 ECG Data Interpretation: Independent interpretation Sinus rhythm at a rate of 64 QTC is [address] T wave changes without acute ischemia MDM Narrative Medical decision making narrative: 76-year-old woman with 3 days of upper respiratory symptoms worsening today comes in complaining of significantly increased dizziness. Patient and her adult daughter interviewed Possibilities include viral infection, stroke, cardiac arrhythmia, acute coronary syndrome, pneumonia, CBC and CMP return unremarkable. No suggestion of severe anemia or acute bacterial infection. Clinical exam aside from the fact that she feels unwell is actually quite benign. Respiratory panel returned positive for COVID. This time I am not seeing any life-threatening etiologies, no evidence of stroke significant hypoxia or respiratory distress, pathologic rhythms or additional reason for hospitalization. Discussed with patient, recommended conservative management for her treatments along with anticipatory guidance regarding resolution of her COVID symptoms and reasons to return to the emergency department. Because of her long QT syndrome Zofran is not going to be appropriate. With Reglan she had some minor dysk inetic side effects. Because of the prolonged QT she is not a candidate for paxlovid On re-examination, patient certainly looks better after a L of fluid, without evidence of respiratory distress or significant hypoxia. She is safe for discharge home at this time. Discharge Plan Departure Patient Disposition: Home Clinical Impression: COVID-19 Instructions: COVID-19 Activity Restrictions/Additional Instructions: Thank you for coming in today You do have COVID. With your long QT syndrome your not a candidate for the antiviral medication I have given you a prescription for Phenergan, an anti nausea medicine that can cause some sleepiness but should be safe for you when your prolonged QT syndrome is taken into account The treatment for COVID is conservative management. Fluids, Tylenol to help with the aches and pains and plenty of rest. If you find that you are getting worse or having increasing difficulty with breathing you do need to return to the emergency department Prescriptions: No Action propranolol 120 mg capsule,extended release 24 hr 120 mg PO DAILY warfarin 2 mg tablet 2 mg PO DAILY Label Comments: primary provider prescribed: take 4mg Fri/Fri/Fri and 2mg the other days of the week estradiol [Estrace] 1 mg tablet 1 mg PO Q DAY Qty: 90 3RF oxybutynin chloride 15 mg tablet extended release 24hr 15 mg PO DAILY Qty: 90 0RF Rx Instructions: Please schedule appointment for additional refills. Thanks Premarin 1.25 mg Tablet 1.25 mg PO DAILY alendronate 70 mg tablet 70 mg PO DAILY Referrals: Dominique Howell ARNP [Primary Care Provider] -
--- NOTE | 2022-05-12 20:38 | DI.RAD.S_ITS ---
PROCEDURE: XR CHEST 1V INDICATIONS: cough TECHNIQUE: One view of the chest was acquired. COMPARISON: [facility], CR, XR CHEST 1V, 01/21/2020, 19:33. FINDINGS: Surgical changes and devices: Pacemaker. Lungs and pleura: Lungs are clear. No pleural effusions or pneumothorax. Mediastinum: Mediastinal contours appear normal. Heart size is enlarged. Bones and chest wall: No suspicious bony lesions. Overlying soft tissues appear unremarkable. IMPRESSION: No acute pulmonary process. Dictated by: Tiara Arguello M.D. on 05/12/2022 at 21:04 Approved by: Tiara Arguello M.D. on 05/12/2022 at 21:04
[2022-05-12] MEDS: SODIUM CHLORIDE 0.9% 1,000 ML 1000 ML IV (20:50)
[2022-05-12] MEDS: METOCLOPRAMIDE 10 MG/2 ML INJ IV (20:50)
--- NOTE | 2022-05-12 20:56 | PC.NURSE ---
XR at bedside
--- NOTE | 2022-05-12 21:00 | PC.NURSE ---
EKG at bedside
[2022-05-12 21:03] LABS: Add Manual Diff / Slide Review NO; Basophils Absolute Auto 0 /uL (0-100); Basophils Percent Auto 0.3 % (0-2); Eosinophils Absolute Auto 0 /uL (0-450); Hematocrit 39.6 % (36-46); Hemoglobin 13.4 g/dL (12.0-16.0); Lymphocytes Absolute Auto 600 /uL (1100-4500); Lymphocytes Percent Auto 8.1 % (25-40); Mean Corpuscular HGB Conc 33.9 % (30-36); Mean Corpuscular Volume 85.7 fL (80-100); Monocytes Absolute Auto 900 /uL (0-900); Monocytes Percent Auto 11.7 % (3-14); Neutrophils Absolute Auto 6000 /uL (1500-7000); Neutrophils Percent Auto 79.9 % (50-75); Platelet Count 265 X10^3/uL (150-400); Red Blood Cell Count 4.61 X10^6/uL (4.0-5.2); Red Cell Distribution Width 13.6 % (11.6-14.8); White Blood Cell Count 7.5 X10^3/uL (4.5-11.0)
--- NOTE | 2022-05-12 21:10 | PC.NURSE ---
Pt states that she all of a sudden started feeling antsy and unable to sit still after receiving the ronn Kaiser MD aware and benadryl ordered
[2022-05-12 21:14] LABS: Alanine Aminotransferase 23 IU/L (<35); Albumin 3.9 g/dL (3.5-5.0); Albumin Globulin Ratio 1.3 (1.0-2.8); Alkaline Phosphatase 82 U/L (38-126); Aspartate Aminotransferase 22 IU/L (14-36); Bilirubin Total 0.5 mg/dL (0.2-1.3); Blood Urea Nitrogen 13 mg/dL (7-17); Calcium 8.4 mg/dL (8.4-10.2); Carbon Dioxide 26 mmol/L (22-32); Chloride 100 mmol/L (98-107); Estimated Glomerular Filt Rate > 60 mL/min (>60); Glucose 163 mg/dL (80-110); HEMOLYSIS < 15 (0-50); Potassium 3.3 mmol/L (3.4-5.1); Sodium 136 mmol/L (137-145); Total Protein 6.9 g/dL (6.3-8.2)
[2022-05-12 21:25] LABS: Troponin I < 0.012 ng/mL (0.01-0.034)
[2022-05-12] MEDS: diphenhydrAMINE 50 MG/ML VIAL 25 MG IV (21:28)
[2022-05-12 21:34] LABS: Influenza A - CEPHEID Flu A NEGATIVE (NEGATIVE); Influenza B - CEPHEID Flu B NEGATIVE (NEGATIVE); Respiratory Syncytial Virus Negative (Negative)
--- NOTE | 2022-05-12 21:45 | PC.NURSE ---
Resting quietly in NAD - no needs voiced - feels better after the benadryl
[2022-05-12 21:50] LABS: COVID-19 CEPHEID 4-PLEX PCR POSITIVE (Negative)
[2022-05-12 22:52] VITALS: BP 136/62; PULSE 70; RESP 16; O2SAT 97
== END 2022-05-12 22:55 | disposition home or self-care (01) ==
PROVIDERS: Emergency Provider Emergency Medicine; Family Provider Internal Medicine; PCP Internal Medicine
DX: U07.1 COVID-19 (principal); R10.9 Unspecified abdominal pain; Z79.01 Long term (current) use of anticoagulants; Z79.899 Other long term (current) drug therapy
CPT/HCPCS: 0241U; 36415; 71045; 80053; 84484; 85025; 93005; 96361; 96374; 96375; 99284; J1200; J2765

== ENCOUNTER → 2023-12-12 09:20 | Outpatient (CLI) | payer MEDICARE, SELFPAY ==
--- NOTE | 2023-12-12 09:21 | DI.RAD.S_ITS ---
PROCEDURE: XR DEXA AXIAL SKELETON INDICATIONS: UNSP. OSTEOPOROSIS TYPE,MENOPAUSAL SYNDROME COMPARISON: [facility], , XR DEXA AXIAL SKELETON, 03/27/2020, 9:48. FINDINGS: Lumbar Spine: Bone mineral density 1.060 g/cm2, T score 0.2, prior T-score 0.5. Left Hip: Bone mineral density is 0.705 g/cm2, T score -1.9, prior T-score -2.0. Left Femoral Neck: Bone mineral density is 0.563 g/cm2, T score -2.6, prior T-score -2.0. Right Hip: Bone mineral density 0.733 g/cm2, T score -1.7, prior T-score -1.8. Right Femoral Neck: Bone mineral density is 0.568 g/cm2, T score -2.5, prior T-score -2.4. Fracture Risk Calculation (when applicable): 10-year fracture risk of a major osteoporotic fracture 23 % and of a hip fracture 7.2%. (T score greater or equal to -1.0 to: NORMAL) (T score from -1.1 to -2.4: OSTEOPENIA) (T score less than or equal to -2.5: OSTEOPOROSIS) IMPRESSION: Osteoporosis in the femoral necks bilaterally. Follow-up guidelines as follows: Osteoporosis: Consider a repeat DEXA and Vertebral Fracture Assessment (VFA) exam in 2 years or sooner if medically necessary, to reassess this patient's status. Osteopenia: Consider a repeat DEXA in 2-3 years to reassess this patient's status, or if there is a new clinical indication. Normal: Consider a repeat DEXA in 5 years or sooner, or if there is a new clinical indication. All treatment decisions require clinical judgment and consideration of individual patient factors, including patient preferences, comorbidities, previous drug use, risk factors not captured in the FRAX model (e.g., frailty, falls, vitamin D deficiency, increased bone turnover, interval significant decline in bone density ) and possible under- or over-estimation of fracture risk by FRAX. In addition, the NOF Guide recommends that FDA-approved medical therapies be considered in postmenopausal women and men age >= 50 years with a: * Hip or vertebral (clinical or morphometric) fracture * T-score of <=-2.5 at the spine or hip * Ten-year fracture probability by FRAX of >= 3% for hip fracture or >=20% for major osteoporotic fracture. People with diagnosed cases of osteoporosis or at high risk for fracture should have regular bone mineral density tests. For patients eligible for Medicare, routine testing is allowed once every 2 years. The testing frequency can be increased to one year for patients who have rapidly progressing disease, those who are receiving or discontinuing medical therapy to restore bone mass, or have additional risk factors. Dictated by: Barrie Ordonez M.D. on 12/12/2023 at 10:33 Approved by: Barrie Ordonez M.D. on 12/12/2023 at 10:50
== END ==
PROVIDERS: Family Provider Internal Medicine; PCP Internal Medicine; Referring Provider Internal Medicine; Visit Provider Internal Medicine
DX: M81.0 Age-related osteoporosis without current pathological fracture (principal); N95.1 Menopausal and female climacteric states
CPT/HCPCS: 77080